=== PATIENT | male | born 1960 | race Hispanic/Latino ===

== ENCOUNTER 2018-04-14 10:33 | Emergency (ER) | payer SELFPAY ==
[2018-04-14] MEDS ORDERED: NA CHLORIDE 0.9% 2,000 ML ONE (11:32)
[2018-04-14 11:39] LABS: Absolute Lymphocytes (CBC) 1.8 K/uL (0.7-4.9); Absolute Monocytes 0.5 K/uL (0.1-1.3); Absolute Neutrophil 3.8 K/uL (1.8-8.0); Basophils % 0.8 % (0-1.3); Hematocrit 44.4 % (39.6-49.0); Lymphocytes % 27.6 % (15.3-44.8); MCH 29.5 pg (27.0-35.0); MCV 87.9 fL (80-100); MPV 8.7 fL (7.6-11.3); RBC Red Blood Cell Count 5.05 M/uL (4.33-5.43)
[2018-04-14 12:00] LABS: Protime INR 0.97
[2018-04-14 12:01] LABS: Albumin 3.7 g/dL (3.4-5.0); Bilirubin Direct 0.1 mg/dL (0-0.2); Bilirubin Total 0.4 mg/dL (0.2-1.0); CKMB Creatine Kinase MB 1.1 ng/mL (0.3-3.6); Magnesium 2.5 mg/dL (1.8-2.4); Potassium 4.1 mmol/L (3.5-5.1); Protein, Total 7.9 g/dL (6.4-8.2)
--- NOTE | 2018-04-14 12:50 | RAD REPORT ---
EXAM DESCRIPTION: Kelly Single View04/14/2018 12:37 pm CLINICAL HISTORY: cough COMPARISON: October 2017 FINDINGS: The lungs appear clear of acute infiltrate. The heart is normal size IMPRESSION: No acute abnormalities displayed
--- NOTE | 2018-04-14 12:58 | RAD REPORT ---
EXAM DESCRIPTION: CT - Head Brain Wo Cont - 04/14/2018 12:51 pm CLINICAL HISTORY: Headache COMPARISON: None. TECHNIQUE: Axial 5 mm thick images of the head were obtained without IV contrast. All CT scans are performed using dose optimization technique as appropriate and may include automated exposure control or mA/KV adjustment according to patient size. FINDINGS: No intracranial hemorrhage, mass, edema or shift of mid-line structures. No acute infarcti on changes seen. No abnormal extra-axial fluid collections. Ventricles are normal. Mastoid air cells are clear. Prominent circumferential mucosal thickening of the right maxillary sinu s with small air-fluid level. Mucosal thickening is much less prominent in the left maxillary sinus. There is a small left air-fluid level. Patchy mucosal thickening in the ethmoid air cells. Sphenoid a nd frontal sinuses are clear. Left deviation of the nasal septum. No acute bony findings. IMPRESSION: No mass, edema or acute intracranial finding. Bilateral maxillary sinusitis worse on the right.
--- NOTE | 2018-04-14 13:16 | RAD REPORT ---
EXAM DESCRIPTION: CT - Chest Abdomen Pelvis W Cont - 04/14/2018 12:54 pm CLINICAL HISTORY: Left-sided chest pain, abdominal pain, weakness, abdominal distention COMPARISON: Portable chest April 14, CT chest May 2016 TECHNIQUE: Following dynamic enhancement using 100 milliliters nonionic IV contrast, axial imaging o f the chest, abdomen and pelvis was performed. Biphasic technique was utilized through the abdomen. Oral contrast was administered. All CT scans are performed using dose optimization technique as appropriate and may include automated exposure control or mA/KV adjustment according to patient size. FINDINGS: Small subpleural calcified granuloma seen posterior right upper lung field stable from 201 6. No mass, infiltrate or other acute pleural or parenchymal process. No pleural effusion, pleural th ickening or pneumothorax. No significant aortic or pulmonary arterial tree finding. Mediastinal and h ilar regions show no mass or abnormal lymphadenopathy. No chest wall mass or axillary lymphadenopathy . No rib fracture or clearly pathologic rib process. In the posterior right ninth rib (image 43/93) t here is subtle lucency that is favored to be a volume averaging affect rather than a true rib lesion. No history to indicate posterior lower right rib symptoms. Thoracic spine degenerative changes are p resent. Liver size is normal. Mild diffuse fatty infiltration pattern is present in the liver with no focal l iver lesion identified. Spleen and pancreas show no acute findings. A 2.1 centimeter gallstone is pre sent in a partially contracted gallbladder. Additional stones could be occult. No acute gallbladder p rocess suspected. Biliary tree within normal limits. Symmetric renal function is seen with no mass or hydronephrosis. No adrenal abnormalities. Contracte d urinary bladder shows no suspicious finding. Prostate gland and seminal vesicles within normal limi ts. No dilated bowel loops or focal bowel wall thickening. Mild sigmoid diverticulosis without diverticul itis. Disc and bony degenerative changes are present along with SI joint degenerative change. No significant vascular findings. IMPRESSION: No suspicious mass, infiltrate or acute CT chest finding identified. Mild sigmoid diverticulosis without diverticulitis. No acute CT abdomen or pelvis finding identifiabl e. Cholelithiasis without evidence for acute gallbladder disease. Fatty infiltration of the liver. Subtle lucent area in the posterior right ninth rib is very likely a summation artifact. True lytic l esion is doubtful. This is apparently asymptomatic region for the patient. There are no additional fi ndings on this examination to indicate additional bone abnormalities or significant soft tissue mass/ lymphadenopathy. If there are patient or physician concerns, bone scan could be performed to evaluate for any activity in the right ninth rib or any other significant bone process.
[2018-04-14] MEDS ORDERED: CEFTRIAXONE/SWI 1gm 1 GM/10 ML SYR ONE (13:48)
[2018-04-14] MEDS ORDERED: KETOROLAC 30 MG/ML INJ ONE (14:09)
[2018-04-14] MEDS ORDERED: ASPIRIN 81 MG CHEWABLE TABLET ONE (14:09)
[2018-04-14] MEDS ORDERED: AMOX TR/K CLAV 400MG CHEW TAB PO ONE (14:35)
[2018-04-14 15:07] LABS: CKMB Creatine Kinase MB 1.1 ng/mL (0.3-3.6)
--- NOTE | 2018-04-14 15:16 | EDPHYS ---
Physician Documentation [facility] Name: Azam Eastman Age: 57 yrs Sex: Male : 1960 Arrival Date: 04/14/2018 Time: 10:35 Bed 14 Private MD: ED Physician Ed Trent HPI: 04/14 11:14 This 57 yrs old Male presents to ER via Wheelchair with complaints of valentine Weakness, Headache. 11:14 The patient presents to the emergency department with weakness of the. Onset: The valentine symptoms/episode began/occurred 4 day(s) ago. Severity of symptoms: At their worst the symptoms were mild moderate in the emergency department the symptoms are unchanged. Historical: - Allergies: 10:46 No Known Allergies; aa5 - PMHx: 10:46 Cholelithiasis; aa5 11:03 Arthritis; ae1 - PSHx: 10:47 L knee; aa5 - Immunization history:: Adult Immunizations up to date. - Social history:: Smoking status: Patient/guardian denies using tobacco. - Ebola Screening: : No symptoms or risks identified at this time. - Family history:: not pertinent. ROS: 11:15 Eyes: Negative for injury, pain, redness, and discharge, ENT: Negative for injury, valentine pain, and discharge, Neck: Negative for injury, pain, and swelling, Cardiovascular: Negative for chest pain, palpitations, and edema, Respiratory: Negative for shortness of breath, cough, wheezing, and pleuritic chest pain, Back: Negative for injury and pain, : Negative for injury, bleeding, discharge, and swelling, Skin: Negative for injury, rash, and discoloration, Neuro: Negative for headache, weakness, numbness, tingling, and seizure, Psych: Negative for depression, anxiety, suicide ideation, homicidal ideation, and hallucinations, Allergy/Immunology: Negative for hives, rash, and allergies, Endocrine: Negative for neck swelling, polydipsia, polyuria, polyphagia, and marked weight changes, Hematologic/Lymphatic: Negative for swollen nodes, abnormal bleeding, and unusual bruising. 11:15 Constitutional: Positive for body aches, fatigue, malaise. 11:15 Abdomen/GI: Positive for abdominal pain, of the anterior aspect of left lateral abdomen and posterior aspect of left lateral abdomen. 11:15 MS/extremity: Positive for pain, tenderness, of the left arm. Exam: 11:15 Constitutional: This is a well developed, well nourished patient who is awake, alert, valentine and in no acute distress. Head/Face: Normocephalic, atraumatic. Eyes: Pupils equal round and reactive to light, extra-ocular motions intact. Lids and lashes normal. Conjunctiva and sclera are non-icteric and not injected. Cornea within normal limits. Periorbital areas with no swelling, redness, or edema. ENT: Nares patent. No nasal discharge, no septal abnormalities noted. Tympanic membranes are normal and external auditory canals are clear. Oropharynx with no redness, swelling, or masses, exudates, or evidence of obstruction, uvula midline. Mucous membranes moist. Neck: Trachea midline, no thyromegaly or masses palpated, and no cervical lymphadenopathy. Supple, full range of motion without nuchal rigidity, or vertebral point tenderness. No Meningismus. Chest/axilla: Normal chest wall appearance and motion. Nontender with no deformity. No lesions are appreciated. Cardiovascular: Regular rate and rhythm with a normal S1 and S2. No gallops, murmurs, or rubs. Normal PMI, no JVD. No pulse deficits. Respiratory: Lungs have equal breath sounds bilaterally, clear to auscultation and percussion. No rales, rhonchi or wheezes noted. No increased work of breathing, no retractions or nasal flaring. Back: No spinal tenderness. No costovertebral tenderness. Full range of motion. Male : Normal genitalia with no discharge or lesions. Skin: Warm, dry with normal turgor. Normal color with no rashes, no lesions, and no evidence of cellulitis. MS/ Extremity: Pulses equal, no cyanosis. Neurovascular intact. Full, normal range of motion. Neuro: Awake and alert, GCS 15, oriented to person, place, time, and situation. Cranial nerves II-XII grossly intact. Motor strength 5/5 in all extremities. Sensory grossly intact. Cerebellar exam normal. Normal gait. Psych: Awake, alert, with orientation to person, place and time. Behavior, mood, and affect are within normal limits. 11:15 Abdomen/GI: Inspection: abdomen appears normal, Bowel sounds: normal, Palpation: mild abdominal tenderness, moderate abdominal tenderness, in the anterior aspect of left lateral abdomen and posterior aspect of left lateral abdomen, Liver: no appreciated palpable abnormalities, Hernia: not appreciated. 11:58 Neck: ROM/movement: is normal, no acute changes, Meningeal signs: are not present, valentine Kernig's sign is negative, Brudzinski's sign is negative. Vital Signs: 10:40 Weight 156.49 kg (R); Height 5 ft. 11 in. (180.34 cm) (R); Pain 10/10; aa5 10:54 BP 139 / 93; Pulse 67; Resp 22; Temp 98.3(O); Pulse Ox 97% ; mh5 11:58 BP 140 / 90; Pulse 58; Resp 19; Pulse Ox 98% on R/A; ae1 13:46 BP 143 / 89; Pulse 59; Resp 18; Pulse Ox 100% on R/A; mh5 13:50 BP 136 / 80; Pulse 55; Resp 19; Pulse Ox 99% on R/A; ae1 16:01 BP 134 / 82; Pulse 62; Resp 17; Pulse Ox 98% on R/A; ae1 10:40 Body Mass Index 48.12 (156.49 kg, 180.34 cm) aa5 MDM: 10:42 Patient medically screened. [facility] 11:17 Data reviewed: vital signs, nurses notes, lab test result(s), EKG, radiologic studies, [facility] CT scan, plain films. 04/14 11:13 Order name: Basic Metabolic Panel; Complete Time: 13:15 [facility] 04/14 11:13 Order name: CBC with Diff; Complete Time: 11:58 [facility] 04/14 11:13 Order name: Ckmb; Complete Time: 13:15 [facility] 04/14 11:13 Order name: CPK; Complete Time: 13:15 [facility] 04/14 11:13 Order name: LFT's; Complete Time: 13:15 [facility] 04/14 11:13 Order name: Magnesium; Complete Time: 13:15 [facility] 04/14 11:13 Order name: NT PRO-BNP; Complete Time: 13:15 [facility] 04/14 11:13 Order name: PT-INR; Complete Time: 13:15 [facility] 04/14 11:13 Order name: Ptt, Activated; Complete Time: 13:15 [facility] 04/14 11:13 Order name: Troponin (emerg Dept Use Only); Complete Time: 13:15 [facility] 04/14 11:13 Order name: Blood Culture Adult (2) [facility] 04/14 11:13 Order name: Lipase; Complete Time: 13:15 [facility] 04/14 11:13 Order name: Urine Culture [facility] 04/14 13:00 Order name: Urine Dipstick--Ancillary (enter results) 04/14 11:13 Order name: XRAY Chest (1 view); Complete Time: 13:15 [facility] 04/14 11:13 Order name: EKG; Complete Time: 11:14 [facility] 04/14 11:13 Order name: Cardiac monitoring; Complete Time: 11:24 [facility] 04/14 11:13 Order name: EKG - Nurse/Tech; Complete Time: 11:24 [facility] 04/14 11:13 Order name: CT Head Brain wo Cont; Complete Time: 13:15 [facility] 04/14 11:13 Order name: CT Chest, Abdomen, Pelvis - W/Contrast; Complete Time: 13:41 [facility] 04/14 13:48 Order name: Ckmb; Complete Time: 15:14 [facility] 04/14 13:48 Order name: Creatine Phosphokinase; Complete Time: 15:14 [facility] 04/14 13:48 Order name: Troponin (emerg Dept Use Only); Complete Time: 15:14 [facility] 04/14 14:22 Order name: US Carotid Artery Bilateral [facility] 04/14 11:13 Order name: IV Saline Lock; Complete Time: 11:24 [facility] 04/14 11:13 Order name: Labs collected and sent; Complete Time: 11:25 [facility] 04/14 11:13 Order name: O2 Per Protocol; Complete Time: 11:24 [facility] 04/14 11:13 Order name: O2 Sat Monitoring; Complete Time: 11:24 [facility] 04/14 11:13 Order name: Urine Dipstick-Ancillary (obtain specimen); Complete Time: 12:49 [facility] 04/14 13:48 Order name: Repeat Cardiac Enzymes at: 200pm; Complete Time: 14:18 [facility] Administered Medications: 11:30 Drug: NS 0.9% 1000 ml Route: IV; Rate: 1 bolus; Site: right antecubital; ae1 16:00 Follow up: IV Status: Completed infusion ae1 11:30 Drug: NS 0.9% 1000 ml Route: IV; Rate: 1 bolus; Site: right antecubital; ae1 16:00 Follow up: IV Status: Completed infusion ae1 13:32 Drug: Rocephin - (cefTRIAXone) 1 grams Route: IVPB; Infused Over: 30 mins; Site: right ae1 antecubital; 15:59 Follow up: IV Status: Completed infusion ae1 14:08 Drug: Aspirin 81 mg Route: PO; ae1 14:33 Follow up: Response: No adverse reaction ae1 14:09 Drug: TORadol 30 mg Route: IVP; Site: right antecubital; ae1 15:59 Follow up: Response: Pain is decreased ae1 14:40 Drug: Augmentin 875 mg Route: PO; ae1 15:59 Follow up: Response: No adverse reaction ae1 Disposition: 04/14/18 15:15 Discharged to Home. Impression: Weakness, Headache, Other chest pain - musculoskelatal, Obesity, unspecified, Acute sinusitis. - Condition is Stable. - Discharge Instructions: Nonspecific Chest Pain, General Headache Without Cause, Sinusitis, Adult, Weakness, Fatigue, Sinusitis, Uijf-fd-Jnwv, Nonspecific Chest Pain, Cghp-pf-Ebeq, Weakness, Ccgp-gb-Ruse, Aspirin and Your Heart, General Headache Without Cause, Ywgm-nu-Egkz, Obesity, Nfkv-sy-Ognr. - Prescriptions for Fioricet with Codeine 50- 325-40-30 mg Oral capsule - take 1 capsule by ORAL route every 4 hours as needed not to exceed 6 capsules per 24hrs; 26 capsule. Augmentin 875- 125 mg Oral Tablet - take 1 tablet by ORAL route every 12 hours for 10 days; 20 tablet. Zofran 4 mg Oral Tablet - take 1 tablet by ORAL route every 12 hours As needed; 20 tablet. - Medication Reconciliation Form, Thank You Letter, Antibiotic Education, Prescription Opioid Use form. - Follow up: Private Physician; When: 2 - 3 days; Reason: Recheck today's complaints, Continuance of care, Re-evaluation by your physician. Follow up: Danyel Giang; When: 2 - 3 days; Reason: Recheck today's complaints, Continuance of care, Re-evaluation by your physician. - Problem is new. - Symptoms have improved. Signatures: Dispatcher [employer] Ed George MD MD cha Calderon, Audri RN RN aa5 Praful Mcgee RN RN ae1 Corrections: (The following items were deleted from the chart) 10:47 10:46 PSHx: None; aa5 aa5 16:01 15:15 04/14/2018 15:15 Discharged to Home. Impression: Weakness; Headache; Other chest ae1 pain - musculoskelatal; Obesity, unspecified; Acute sinusitis. Condition is Stable. Discharge Instructions: Nonspecific Chest Pain, General Headache Without Cause, Weakness, Fatigue, Nonspecific Chest Pain, Mhya-ui-Emvv, Weakness, Uwjv-rq-Buyl, Aspirin and Your Heart, General Headache Without Cause, Nxkk-zw-Ikjk, Obesity, Wkvf-eb-Kbxy, Sinusitis, Adult, Sinusitis, Iryk-xb-Osgo. Prescriptions for Fioricet with Codeine 50-189-98-30 mg Oral capsule - take 1 capsule by ORAL route every 4 hours as needed not to exceed 6 capsules per 24hrs; 26 capsule, Augmentin 875-125 mg Oral Tablet - take 1 tablet by ORAL route every 12 hours for 10 days; 20 tablet, Zofran 4 mg Oral Tablet - take 1 tablet by ORAL route every 12 hours As needed; 20 tablet. and Forms are Medication Reconciliation Form, Thank You Letter, Antibiotic Education, Prescription Opioid Use. Follow up: Private Physician; When: 2 - 3 days; Reason: Recheck today's complaints, Continuance of care, Re-evaluation by your physician. Follow up: Danyel Giang; When: 2 - 3 days; Reason: Recheck today's complaints, Continuance of care, Re-evaluation by your physician. Problem is new. Symptoms have improved. valentine
--- NOTE | 2018-04-14 15:16 | ER ---
Nurse's Notes [facility] Name: Azam Eastman Age: 57 yrs Sex: Male : 1960 Arrival Date: 04/14/2018 Time: 10:35 Bed 14 Private MD: Diagnosis: Weakness;Headache;Other chest pain-musculoskelatal;Obesity, unspecified;Acute sinusitis Presentation: 04/14 10:37 Presenting complaint: Patient states: generalized weakness x 2 days, headache to back aa5 of head x 4 days. Pt also reports left-sided chest pain and left arm pain x 2 days. Pt denies N/V/D. 10:37 Transition of care: patient was not received from another setting of care. Onset of aa5 symptoms was March 2018. Risk Assessment: Do you want to hurt yourself or someone else? Patient reports no desire to harm self or others. Initial Sepsis Screen: Does the patient meet any 2 criteria? No. Patient's initial sepsis screen is negative. Does the patient have a suspected source of infection? No. Patient's initial sepsis screen is negative. Care prior to arrival: None. 10:37 Method Of Arrival: Wheelchair aa5 10:37 Acuity: YOLIS 3 aa5 11:01 No acute neurological deficit is noted. ae1 Historical: - Allergies: 10:46 No Known Allergies; aa5 - PMHx: 10:46 Cholelithiasis; aa5 11:03 Arthritis; ae1 - PSHx: 10:47 L knee; aa5 - Immunization history:: Adult Immunizations up to date. - Social history:: Smoking status: Patient/guardian denies using tobacco. - Ebola Screening: : No symptoms or risks identified at this time. - Family history:: not pertinent. Screenin:00 Abuse screen: Denies threats or abuse. Nutritional screening: No deficits noted. ae1 Tuberculosis screening: No symptoms or risk factors identified. Fall Risk None identified. Assessment: 10:58 General: Appears in no apparent distress. uncomfortable, obese, Behavior is ae1 cooperative, anxious. Pain: Complains of pain in anterior aspect of left upper chest and left breast Pain radiates to left arm Pain currently is 10 out of 10 on a pain scale. Pain: Complains of pain in head and back of head. Neuro: Level of Consciousness is awake, alert, obeys commands, Oriented to person, place, time, situation. Cardiovascular: skin is warm and mildly diaphoretic. . Respiratory: Airway is patent Respiratory effort is even, unlabored, Respiratory pattern is regular, symmetrical, Breath sounds are clear bilaterally. in right upper lobe, left upper lobe, right middle lobe, left lower lobe and right lower lobe. GI: Abdomen is round obese, Bowel sounds present X 4 quads. Abd is soft and non tender. GI: Reports nausea. : No signs and/or symptoms were reported regarding the genitourinary system. EENT: No signs and/or symptoms were reported regarding the EENT system. Derm: Skin is intact, Skin is diaphoretic, Skin is normal, Skin temperature is warm. Musculoskeletal: Reports Generalized weakness. 11:41 Reassessment: Notified CT, via telephone that patient completed PO contrast at 11:20. ae1 12:06 Reassessment: Patient encouraged to urinate to provide urine sample, patient states he ae1 is unable to at this time. 13:51 Reassessment: Provider at bedside discussing plan of care. ae1 14:34 Reassessment: Ultrasound at bedside. ae1 Vital Signs: 10:40 Weight 156.49 kg (R); Height 5 ft. 11 in. (180.34 cm) (R); Pain 10/10; aa5 10:54 BP 139 / 93; Pulse 67; Resp 22; Temp 98.3(O); Pulse Ox 97% ; mh5 11:58 BP 140 / 90; Pulse 58; Resp 19; Pulse Ox 98% on R/A; ae1 13:46 BP 143 / 89; Pulse 59; Resp 18; Pulse Ox 100% on R/A; mh5 13:50 BP 136 / 80; Pulse 55; Resp 19; Pulse Ox 99% on R/A; ae1 16:01 BP 134 / 82; Pulse 62; Resp 17; Pulse Ox 98% on R/A; ae1 10:40 Body Mass Index 48.12 (156.49 kg, 180.34 cm) aa5 ED Course: 10:35 Patient arrived in ED. rg4 10:37 Arm band placed on Patient placed in an exam room, on a stretcher. aa5 10:39 Praful Mcgee RN is Primary Nurse. ae1 10:42 Ed Trent MD is Attending Physician. valentine 10:46 Triage completed. aa5 10:53 Patient has correct armband on for positive identification. Placed in gown. Bed in low mh5 position. Call light in reach. Side rails up X 1. Warm blanket given. night monitor on. Pulse ox on. NIBP on. 11:01 Inserted saline lock: 20 gauge in right antecubital area, using aseptic technique. ae1 Blood collected. 11:15 EKG done, by cartography technician. reviewed by Ed Trent MD. at1 11:45 First set of blood cultures drawn by me, Second set of blood cultures drawn by me. mh5 12:36 XRAY Chest (1 view) In Process Unspecified. EDMS 12:51 CT Head Brain wo Cont In Process Unspecified. EDMS 12:54 CT Chest, Abdomen, Pelvis - W/Contrast In Process Unspecified. EDMS 12:59 Urine collected: clean catch specimen, clear. mh5 12:59 Urine Culture Sent. mh5 13:00 Blood Culture Adult (2) Sent. mh5 13:04 CT completed. Patient tolerated procedure well. Patient moved back from CT. vr 14:31 Ckmb Sent. mh5 14:31 Creatine Phosphokinase Sent. mh5 14:31 Troponin (emerg Dept Use Only) Sent. mh5 14:32 Repeat lab(s) drawn. by me, sent to lab. mh5 14:52 US Carotid Artery Bilateral In Process Unspecified. EDMS 14:53 Ultrasound completed. Other: at bedside. aa4 15:15 Danyel Giang MD is Referral Physician. valentine 15:58 No provider procedures requiring assistance completed. IV discontinued, intact, ae1 bleeding controlled, No redness/swelling at site. Pressure dressing applied. Administered Medications: 11:30 Drug: NS 0.9% 1000 ml Route: IV; Rate: 1 bolus; Site: right antecubital; ae1 16:00 Follow up: IV Status: Completed infusion ae1 11:30 Drug: NS 0.9% 1000 ml Route: IV; Rate: 1 bolus; Site: right antecubital; ae1 16:00 Follow up: IV Status: Completed infusion ae1 13:32 Drug: Rocephin - (cefTRIAXone) 1 grams Route: IVPB; Infused Over: 30 mins; Site: right ae1 antecubital; 15:59 Follow up: IV Status: Completed infusion ae1 14:08 Drug: Aspirin 81 mg Route: PO; ae1 14:33 Follow up: Response: No adverse reaction ae1 14:09 Drug: TORadol 30 mg Route: IVP; Site: right antecubital; ae1 15:59 Follow up: Response: Pain is decreased ae1 14:40 Drug: Augmentin 875 mg Route: PO; ae1 15:59 Follow up: Response: No adverse reaction ae1 Outcome: 15:15 Discharge ordered by MD. grijalva 15:58 Discharged to home ambulatory, with assistant production editor ae1 15:58 Condition: stable 15:58 Discharge instructions given to patient, assistant production editor, Instructed on discharge instructions, follow up and referral plans. medication usage, Demonstrated understanding of instructions, Prescriptions given X 3. 16:01 Patient left the ED. ae1 Signatures: Dispatcher [employer] EDEd Szymanski MD MD cha Frazier, Amanda aa4 Shara Carrasco RN RN aa5 Dayanna Stevenson Amanda, food preservation scientist EKG Tat1 Praful Mcgee RN RN ae1 Jaylene Montejo 4 Charlotte Tian [facility] Corrections: (The following items were deleted from the chart) 10:47 10:46 PSHx: None; aa5 aa5
[2018-04-14 15:29] LABS: Urine Blood NEGATIVE (NEG); Urine Glucose NEGATIVE (NEG); Urine Protein TRACE (NEG); Urine Specific Gravity 1.025 (1.005-1.030)
--- NOTE | 2018-04-14 16:18 | EKG ---
Test Date: 2018-04-14 Test Time: 10:52:00 Metallurgist Helper: TONY MEASUREMENT RESULTS: Intervals: Rate: 70 MN: 150 QRSD: 90 QT: 394 QTc: 425 [place]: P: 15 MN: 150 QRS: 60 T: 67 INTERPRETIVE STATEMENTS: Normal sinus rhythm Normal ECG Compared to ECG 06/17/2016 19:59:52 No significant changes Electronically Signed On 04-14-18 16:18:03 CDT by Jasvir Chapa
--- NOTE | 2018-04-14 17:43 | RAD REPORT ---
EXAM DESCRIPTION: LINDA Ross CP - 04/14/2018 3:02 pm CLINICAL HISTORY: Dizziness, weakness, headache COMPARISON: None. TECHNIQUE: Real-time sonographic evaluation of both carotid systems was performed. Doppler interroga tion was performed with waveform tracing bilaterally. FINDINGS: Normal high resistance waveforms are noted in both external carotid arteries. The common c arotid arteries and internal carotid arteries show normal low resistance waveforms. Calcified and noncalcified plaquing changes are present in each carotid bulb, more so on the right. O n visual inspection the atherosclerotic changes do not cause significant luminal narrowing. Peak syst olic and end diastolic velocity values and the ICA/CCA ratios are in the non-hemodynamically signific ant range. Right common carotid artery peak systolic velocity was 63 cm/second with the left common c arotid 93 cm/second. Right ICA velocity values ranged from 47-67 cm/second. Left ICA velocity values range from 60-79 cm/second. ICA/CCA ratios are 1.1 on the right and 0.9 on the left. Antegrade flow seen in both vertebral arteries. Velocity values and ratios were recorded and are retained in the patient's imaging records. IMPRESSION: Bilateral carotid bulb calcified and noncalcified plaquing changes. No evidence of a hemodynamically significant stenosis.
== END 2018-04-14 16:01 | disposition home or self-care (01) ==
LOC: ER 10:33
DX: R51 Headache (principal); R07.89 Other chest pain; J01.90 Acute sinusitis, unspecified; E66.9 Obesity, unspecified
CPT/HCPCS: 36415; 70450; 71045; 71260; 74177; 80048; 80076; 81003; 82550; 82553; 83690; 83735; 83880; 84484; 85025; 85610; 85730; 87040; 87086; 87088; 87205; 93005; 93880; 96361; 96365; 96366; 96375; 99285; J0696; J7030; Q9967

== ENCOUNTER 2018-11-18 16:46 | Emergency (ER) | payer SELFPAY ==
[2018-11-18] MEDS ORDERED: KETOROLAC 30 MG/ML INJ ONE (18:03)
[2018-11-18 18:26] LABS: Absolute Lymphocytes (CBC) 1.8 K/uL (0.7-4.9); Absolute Monocytes 0.6 K/uL (0.1-1.3); Absolute Neutrophil 2.6 K/uL (1.8-8.0); Basophils % 0.7 % (0-1.3); Hematocrit 46.6 % (39.6-49.0); Lymphocytes % 32.5 % (15.3-44.8); MPV 8.6 fL (7.6-11.3); Monocytes % 10.2 % (3.3-12.3); RBC Red Blood Cell Count 5.21 M/uL (4.33-5.43)
--- NOTE | 2018-11-18 18:26 | RAD REPORT ---
EXAM DESCRIPTION: CT - Stone Protocol - 11/18/2018 6:00 pm CLINICAL HISTORY: Abdominal pain. Left flank pain COMPARISON: March 2018 TECHNIQUE: Computed axial tomography of the abdomen pelvis was obtained without oral or IV contrast. Lack of IV and oral contrast limits evaluation of solid organs, bowel, and vessels. Coronal reformat hyacinth images were obtained and reviewed. All CT scans are performed using dose optimization technique as appropriate and may include automated exposure control or mA/KV adjustment according to patient size. FINDINGS: A renal calculus is not seen. An ureteral calculus is not noted. A bladder calculus is not present. The liver, spleen, pancreas and adrenals appear grossly normal There is no evidence of diverticulitis. The appendix appears normal Gallstone without gallbladder wall thickening IMPRESSION: Negative for a genitourinary calculus Cholelithiasis without cholecystitis
[2018-11-18 18:43] LABS: Potassium 4.1 mmol/L (3.5-5.1)
[2018-11-18 18:45] LABS: Urine Bacteria NONE SEEN /HPF (NONE SEEN)
[2018-11-18 18:46] LABS: Urine Blood NEGATIVE (NEG); Urine Glucose NEGATIVE (NEG); Urine Protein NEGATIVE (NEG); Urine Specific Gravity 1.025 (1.005-1.030); Urine pH 6.5 (5.0-7.0)
[2018-11-18 18:46] LABS: Urine Culture Reflex Order NOT NEEDED
--- NOTE | 2018-11-18 19:23 | ER ---
Nurse's Notes [facility] Name: Azam Eastman Age: 58 yrs Sex: Male : 1960 Arrival Date: 11/18/2018 Time: 16:49 Bed 15 Private MD: Diagnosis: Sciatica, left side Presentation: 11/18 17:12 Presenting complaint: Left flank pain 10/10 and dizziness x 2 days. Denies hb injury/urinary s/s. Transition of care: patient was not received from another setting of care. Onset of symptoms was November 17, 2018. Risk Assessment: Do you want to hurt yourself or someone else? Patient reports no desire to harm self or others. Care prior to arrival: None. 17:12 Method Of Arrival: Ambulatory hb 17:12 Acuity: YOLIS 3 hb 17:15 Initial Sepsis Screen: Does the patient meet any 2 criteria? No. Patient's initial rb1 sepsis screen is negative. Does the patient have a suspected source of infection? No. Patient's initial sepsis screen is negative. Historical: - Allergies: 17:13 No Known Allergies; hb - Home Meds: 17:15 None [Active]; rb1 - PMHx: 17:13 Arthritis; Cholelithiasis; hb 17:15 kidney infection; Kidney stones; rb1 - PSHx: 17:13 L knee; hb - Immunization history:: Adult Immunizations up to date. - Social history:: Smoking status: Patient/guardian denies using tobacco. - Ebola Screening: : No symptoms or risks identified at this time. Screenin:15 Abuse screen: Denies threats or abuse. Nutritional screening: No deficits noted. rb1 Tuberculosis screening: No symptoms or risk factors identified. Fall Risk None identified. Assessment: 17:15 General: Appears uncomfortable, obese, Behavior is calm, cooperative. Pain: Complains rb1 of pain in left flank Pain radiates to left low back Pain currently is 10 out of 10 on a pain scale. Pain began Saturday. Neuro: Level of Consciousness is awake, alert, obeys commands, Oriented to person, place, time, situation. Cardiovascular: Capillary refill < 3 seconds is brisk in bilateral fingers. Respiratory: Airway is patent Respiratory effort is even, unlabored, Respiratory pattern is regular, symmetrical. GI: No signs and/or symptoms were reported involving the gastrointestinal system. : No signs and/or symptoms were reported regarding the genitourinary system. Derm: Skin is dry, Skin is normal, Skin temperature is warm. Musculoskeletal: Range of motion: intact in all extremities. 18:15 Reassessment: Patient appears in no apparent distress at this time. No changes from rb1 previously documented assessment. 18:45 Reassessment: Patient appears in no apparent distress at this time. Patient and/or rb1 family updated on plan of care and expected duration. Pain level reassessed. Patient is alert, oriented x 3, equal unlabored respirations, skin warm/dry/pink. Vital Signs: 17:13 BP 163 / 100; Pulse 65; Resp 18; Temp 98.8; Pulse Ox 97% ; Pain 10/10; hb 18:44 BP 146 / 84; Pulse 67; Resp 20; Pulse Ox 100% on R/A; Pain 9/10; rb1 20:13 BP 138 / 95; Pulse 62; Resp 18; Pulse Ox 98% on R/A; Pain 4/10; ao ED Course: 16:49 Patient arrived in ED. rg4 17:13 Triage completed. hb 17:13 Arm band placed on. EKG completed in triage. Results shown to MD. EKG completed in hb triage. Results shown to MD. 17:15 Patient has correct armband on for positive identification. Bed in low position. Call rb1 light in reach. Side rails up X 1. Pulse ox on. NIBP on. 17:24 Junior Barba MD is Attending Physician. gs 17:39 Zulma Johnson RN is Primary Nurse. rb1 17:[address] nj 18:01 CT Stone Protocol In Process Unspecified. EDMS 18:10 Inserted saline lock: 22 gauge in right antecubital area, using aseptic technique. rb1 Blood collected. 18:28 Urine Microscopic Only Sent. rb1 19:00 Report given to BULMARO Cabrera. rb1 20:13 No provider procedures requiring assistance completed. IV discontinued, intact, ao bleeding controlled, No redness/swelling at site. Pressure dressing applied. Administered Medications: 18:15 Drug: TORadol 30 mg Route: IVP; Site: right antecubital; rb1 18:45 Follow up: Response: No adverse reaction; Pain is unchanged, physician notified rb1 Outcome: 19:23 Discharge ordered by . gs 20:13 Discharged to home ambulatory. ao 20:13 Condition: stable 20:13 Discharge instructions given to patient, Instructed on discharge instructions, follow up and referral plans. the need for admit, Demonstrated understanding of instructions, follow-up care, medications, Prescriptions given X 2. 20:14 Patient left the ED. ao Signatures: Dispatcher [employer] EDMS Zulma Johnson RN RN rb1 Rick Melendez RN RN ao Baxter, Heather, RN RN hb Garcia, Rubi 4 Finn Inman Gregory, MD MD
--- NOTE | 2018-11-18 19:23 | EDPHYS ---
Physician Documentation [facility] Name: Azam Eastman Age: 58 yrs Sex: Male : 1960 Arrival Date: 11/18/2018 Time: 16:49 Bed 15 Private MD: ED Physician Junior Barba HPI: 11/18 19:12 This 58 yrs old Male presents to ER via Ambulatory with complaints of Low Back gs Pain. 19:13 The patient presents with pain that is acute. The symptoms are located in the low back. gs The pain radiates to the left quadriceps. Onset: The symptoms/episode began/occurred 3 day(s) ago, and became persistent. Modifying factors: The patient symptoms are alleviated by nothing, the patient symptoms are aggravated by any movement, bending. Associated signs and symptoms: Pertinent negatives: hematuria, incontinence, numbness, tingling, urinary retention, weakness. Severity of symptoms: At their worst the symptoms were moderate, in the emergency department the symptoms are unchanged. The patient has experienced similar episodes in the past, a few times. Historical: - Allergies: 17:13 No Known Allergies; hb - Home Meds: 17:15 None [Active]; rb1 - PMHx: 17:13 Arthritis; Cholelithiasis; hb 17:15 kidney infection; Kidney stones; rb1 - PSHx: 17:13 L knee; hb - Immunization history:: Adult Immunizations up to date. - Social history:: Smoking status: Patient/guardian denies using tobacco. - Ebola Screening: : No symptoms or risks identified at this time. ROS: 19:21 All other systems are negative. gs Exam: 19:21 Head/Face: Normocephalic, atraumatic. Eyes: Pupils equal round and reactive to light, gs extra-ocular motions intact. Lids and lashes normal. Conjunctiva and sclera are non-icteric and not injected. Cornea within normal limits. Periorbital areas with no swelling, redness, or edema. ENT: Nares patent. No nasal discharge, no septal abnormalities noted. Tympanic membranes are normal and external auditory canals are clear. Oropharynx with no redness, swelling, or masses, exudates, or evidence of obstruction, uvula midline. Mucous membranes moist. Neck: Trachea midline, no thyromegaly or masses palpated, and no cervical lymphadenopathy. Supple, full range of motion without nuchal rigidity, or vertebral point tenderness. No Meningismus. Chest/axilla: Normal chest wall appearance and motion. Nontender with no deformity. No lesions are appreciated. Cardiovascular: Regular rate and rhythm with a normal S1 and S2. No gallops, murmurs, or rubs. Normal PMI, no JVD. No pulse deficits. Respiratory: Lungs have equal breath sounds bilaterally, clear to auscultation and percussion. No rales, rhonchi or wheezes noted. No increased work of breathing, no retractions or nasal flaring. Abdomen/GI: Soft, non-tender, with normal bowel sounds. No distension or tympany. No guarding or rebound. No evidence of tenderness throughout. Skin: Warm, dry with normal turgor. Normal color with no rashes, no lesions, and no evidence of cellulitis. MS/ Extremity: Pulses equal, no cyanosis. Neurovascular intact. Full, normal range of motion. Neuro: Awake and alert, GCS 15, oriented to person, place, time, and situation. Cranial nerves II-XII grossly intact. Motor strength 5/5 in all extremities. Sensory grossly intact. Cerebellar exam normal. Normal gait. 19:21 Constitutional: The patient appears alert, awake. 19:21 Back: pain, that is mild, of the lumbar area. Vital Signs: 17:13 BP 163 / 100; Pulse 65; Resp 18; Temp 98.8; Pulse Ox 97% ; Pain 10/10; hb 18:44 BP 146 / 84; Pulse 67; Resp 20; Pulse Ox 100% on R/A; Pain 9/10; rb1 20:13 BP 138 / 95; Pulse 62; Resp 18; Pulse Ox 98% on R/A; Pain 4/10; ao MDM: 17:42 Patient medically screened. 19:21 Differential diagnosis: arthritis, strain, UTI, stone,aaa. Data reviewed: vital signs, nurses notes. Response to treatment: the patient's symptoms have markedly improved after treatment, and as a result, I will discharge patient. 11/18 17:42 Order name: CBC with Diff; Complete Time: 19:01 11/18 17:42 Order name: Basic Metabolic Panel; Complete Time: 19: 11/18 17:42 Order name: Urine Microscopic Only; Complete Time: : 11/18 17:42 Order name: CT Stone Protocol; Complete Time: 19:01 gs 11/18 18:06 Order name: Urine Dipstick--Ancillary (enter results); Complete Time: 19: 11/18 17:42 Order name: Urine Dipstick-Ancillary (obtain specimen); Complete Time: 18:28 Administered Medications: 18:15 Drug: TORadol 30 mg Route: IVP; Site: right antecubital; rb1 18:45 Follow up: Response: No adverse reaction; Pain is unchanged, physician notified rb1 Disposition: 11/18/18 19:23 Discharged to Home. Impression: Sciatica, left side. - Condition is Stable. - Discharge Instructions: Sciatica, Back Exercises, [id number]. - Prescriptions for Prednisone 20 mg Oral Tablet - take 1 tablet by ORAL route once daily for 5 days; 5 tablet. Tylenol- Codeine #4 300-60 mg Oral Tablet - take 1 tablet by ORAL route every 6 hours As needed; 12 tablet. - Work release form, Medication Reconciliation Form, Thank You Letter, Antibiotic Education, Prescription Opioid Use form. - Follow up: Private Physician; When: 2 - 3 days; Reason: Re-evaluation by your physician. - Problem is an acute exacerbation. - Symptoms have improved. Signatures: Dispatcher [employer] EDMS Zulma Johnson RN RN [facility] Rick Melendez RN RN ao Baxter, Heather, RN RN hb Starr, Gregory, MD MD Corrections: (The following items were deleted from the chart) 20:14 19:23 11/18/2018 19:23 Discharged to Home. Impression: Sciatica, left side. Condition ao is Stable. Forms are Medication Reconciliation Form, Thank You Letter, Antibiotic Education, Prescription Opioid Use. Follow up: Private Physician; When: 2 - 3 days; Reason: Re-evaluation by your physician. Problem is an acute exacerbation. Symptoms have improved.
== END 2018-11-18 20:14 | disposition home or self-care (01) ==
LOC: ER 16:46
DX: M54.32 Sciatica, left side (principal); M54.5 Low back pain; K80.20 Calculus of gallbladder without cholecystitis without obstruction
CPT/HCPCS: 36415; 74176; 76377; 80048; 81003; 81015; 85025; 96374; 99284

== ENCOUNTER 2018-12-03 11:42 | Emergency (ER) | payer SELFPAY ==
[2018-12-03] MEDS ORDERED: MORPHINE 4 MG/ML SYR ONE (13:43)
[2018-12-03] MEDS ORDERED: ONDANSETRON 4 MG/2 ML VIAL ONE (13:43)
[2018-12-03] MEDS ORDERED: NA CHLORIDE 0.9% 1,000 ML ONE (13:43)
[2018-12-03 13:45] LABS: Urine Blood NEGATIVE (NEG); Urine Glucose NEGATIVE (NEG); Urine Protein NEGATIVE (NEG)
[2018-12-03 13:56] LABS: Absolute Lymphocytes (CBC) 1.7 K/uL (0.7-4.9); Absolute Monocytes 0.5 K/uL (0.1-1.3); Absolute Neutrophil 3.3 K/uL (1.8-8.0); Basophils % 0.7 % (0-1.3); Eosinophils % 4.8 % (0-4.4); Hematocrit 43.7 % (39.6-49.0); Lymphocytes % 28.9 % (15.3-44.8); MPV 8.7 fL (7.6-11.3); Monocytes % 8.7 % (3.3-12.3); RBC Red Blood Cell Count 4.82 M/uL (4.33-5.43)
[2018-12-03 13:57] LABS: Albumin 3.8 g/dL (3.4-5.0); Bilirubin Direct 0.1 mg/dL (0-0.2); Bilirubin Total 0.5 mg/dL (0.2-1.0); Protein, Total 7.7 g/dL (6.4-8.2)
--- NOTE | 2018-12-03 14:46 | RAD REPORT ---
EXAM DESCRIPTION: CTAbdomen Pelvis W Contrast - 12/03/2018 2:38 pm CLINICAL HISTORY: Abdominal pain. FLANK PAIN COMPARISON: Abdomen Pelvis W Contrast dated 05/28/2016 TECHNIQUE: Biphasic CT imaging of the abdomen and pelvis was performed with 100 ml non-ionic IV cont rast. All CT scans are performed using dose optimization technique as appropriate and may include automated exposure control or mA/KV adjustment according to patient size. FINDINGS: The lung bases are clear.Cholelithiasis. The liver, spleen, pancreas, adrenal glands and kidneys are within normal limits. No bowel obstruction, free air, free fluid or abscess. Sigmoid diverticulosis coli is present without diverticulitis. The appendix is normal. No evidence of significant lymphadenopathy. Moderate lumbar degenerative changes are present. IMPRESSION: No acute intra-abdominal or pelvic finding. Cholelithiasis.
[2018-12-03] MEDS ORDERED: KETOROLAC 30 MG/ML INJ ONE (15:49)
--- NOTE | 2018-12-03 15:51 | ER ---
Nurse's Notes [facility] Name: Azam Eastman Age: 58 yrs Sex: Male : 1960 Arrival Date: 12/03/2018 Time: 11:47 Bed 18 Private MD: None, None Diagnosis: Low back pain Presentation: 12/03 11:59 Presenting complaint: Patient states: i think my kidneys are infected, started tw2 yesterday, i feel like i am going to pass out from the pain. Transition of care: patient was not received from another setting of care. Onset of symptoms was December 03, 2018. Risk Assessment: Do you want to hurt yourself or someone else? Patient reports no desire to harm self or others. Initial Sepsis Screen: Does the patient meet any 2 criteria? No. Patient's initial sepsis screen is negative. Does the patient have a suspected source of infection? No. Patient's initial sepsis screen is negative. Care prior to arrival: None. 11:59 Method Of Arrival: Wheelchair tw2 11:59 Acuity: YOILS 3 tw2 Triage Assessment: 12:01 General: Appears uncomfortable, obese, unkempt, Behavior is cooperative. Pain: tw2 Complains of pain in right mid back and right low back. Musculoskeletal: Circulation, motion, and sensation intact. Historical: - Allergies: 12:01 No Known Allergies; tw2 - Home Meds: 12:01 None [Active]; tw2 - PMHx: 12:01 kidney infection; Kidney stones; Cholelithiasis; Arthritis; tw2 - PSHx: 12:01 L knee; tw2 - Immunization history:: Adult Immunizations. - Social history:: Smoking status: . - Ebola Screening: : Patient denies travel to an Ebola-affected area in the 21 days before illness onset. Screenin:29 Abuse screen: Denies threats or abuse. Denies injuries from another. Nutritional ls4 screening: No deficits noted. Tuberculosis screening: No symptoms or risk factors identified. Fall Risk None identified. Assessment: 13:02 General: Appears uncomfortable, Behavior is calm, cooperative. ls4 13:02 Neuro: No deficits noted. Neuro: Level of Consciousness is awake, alert, obeys ls4 commands, Oriented to person, place, time, situation. Cardiovascular: Reports None. Respiratory: Airway is patent Respiratory effort is even, unlabored, Respiratory pattern is regular. Vital Signs: 12:00 BP 140 / 80; Pulse 65; Resp 19; Temp 97.5(O); Pulse Ox 98% on R/A; Weight 161.03 kg tw2 (R); Height 5 ft. 11 in. (180.34 cm); Pain 10/10; 13:02 BP 128 / 78; Pulse 66; Resp 16; Pulse Ox 99% on R/A; Pain 7/10; ls4 15:07 BP 132 / 76; Pulse 66; Resp 16; Pulse Ox 98% on R/A; Pain 5/10; ls4 16:02 BP 128 / 68; Pulse 64; Resp 16; Pulse Ox 99% on R/A; Pain 3/10; ls4 12:00 Body Mass Index 49.51 (161.03 kg, 180.34 cm) tw2 ED Course: 11:47 Patient arrived in ED. mr 11:47 None, None is Private Physician. mr 12:00 Triage completed. tw2 12:00 Arm band placed on. tw2 12:51 Monster Magaña, RENATA is PHCP. pm1 12:51 Harry Frias MD is Attending Physician. pm1 12:55 Marquita Skinner, BULMARO is Primary Nurse. ls4 13:09 Radiology exam delayed due to lab results not completed at this time. (BUN/Creatinine). jg6 14:38 CT Abd/Pelvis - W/Contrast: IV contrast only In Process Unspecified. EDMS 15:29 Patient has correct armband on for positive identification. Bed in low position. Call ls4 light in reach. Side rails up X 1. 15:30 No provider procedures requiring assistance completed. ls4 16:20 IV discontinued, intact, bleeding controlled, No redness/swelling at site. Pressure ls4 dressing applied. Administered Medications: 13:36 Drug: NS 0.9% 1000 ml Route: IV; Rate: 1000 ml; Site: right antecubital; ls4 13:36 Drug: morphine 4 mg Route: IVP; Site: right antecubital; ls4 13:56 Follow up: Response: No adverse reaction; Marked relief of symptoms ls4 13:36 Drug: Zofran 4 mg Route: IVP; Site: right antecubital; ls4 13:56 Follow up: Response: No adverse reaction; Marked relief of symptoms ls4 15:40 Drug: TORadol 30 mg Route: IVP; Site: right antecubital; ls4 15:50 Follow up: Response: No adverse reaction; Marked relief of symptoms ls4 Outcome: 15:50 Discharge ordered by . pm1 16:11 Patient left the ED. ls4 16:18 Discharged to home ambulatory. ls4 16:18 Condition: stable 16:18 Discharge instructions given to patient, Instructed on discharge instructions, follow up and referral plans. medication usage, Demonstrated understanding of instructions, follow-up care, medications. Signatures: Dispatcher [employer] KENISHAOR RangelEmilia guerra mr MagañaMonster, RENATA [employer] pm1 Maral Vazquez RN RN tw2 Ginger Montejo jg6 Marquita Skinner RN RN ls4
--- NOTE | 2018-12-03 15:52 | EDPHYS ---
Physician Documentation [facility] Name: Azam Eastman Age: 58 yrs Sex: Male : 1960 Arrival Date: 12/03/2018 Time: 11:47 Bed 18 Private MD: None, None ED Physician Harry Frias HPI: 12/03 14:30 This 58 yrs old Male presents to ER via Wheelchair with complaints of Back pm1 Pain. 14:30 The patient presents with pain that is acute. The symptoms are located in the right low pm1 back. Onset: The symptoms/episode began/occurred yesterday. The pain does not radiate. Associated signs and symptoms: Pertinent negatives: constipation, dysuria, fever, headache, nausea, numbness, tingling, vomiting, Diarrhea. The problem was sustained from unknown cause. Modifying factors: The patient symptoms are alleviated by nothing, the patient symptoms are aggravated by nothing. Severity of symptoms: in the emergency department the symptoms are actually worse. The patient has experienced similar episodes in the past, a few times. The patient has not recently seen a physician. Historical: - Allergies: 12: No Known Allergies; tw2 - Home Meds: 12:01 None [Active]; tw2 - PMHx: 12:01 kidney infection; Kidney stones; Cholelithiasis; Arthritis; tw2 - PSHx: 12:01 L knee; tw2 - Immunization history:: Adult Immunizations. - Social history:: Smoking status: . - Ebola Screening: : Patient denies travel to an Ebola-affected area in the 21 days before illness onset. ROS: 14:30 Constitutional: Negative for fever, chills, and weight loss, Eyes: Negative for injury, pm1 pain, redness, and discharge, ENT: Negative for injury, pain, and discharge, Neck: Negative for injury, pain, and swelling, Cardiovascular: Negative for chest pain, palpitations, and edema, Respiratory: Negative for shortness of breath, cough, wheezing, and pleuritic chest pain, Abdomen/GI: Negative for abdominal pain, nausea, vomiting, diarrhea, and constipation. 14:30 : Negative for injury, bleeding, discharge, and swelling, MS/Extremity: Negative for injury and deformity, Skin: Negative for injury, rash, and discoloration, Neuro: Negative for headache, weakness, numbness, tingling, and seizure. 14:30 Back: Positive for flank pain, on the right, Negative for injury or acute deformity, decreased range of motion. Exam: 14:30 Constitutional: This is a well developed, well nourished patient who is awake, alert, pm1 and in no acute distress. Head/Face: Normocephalic, atraumatic. Eyes: Pupils equal round and reactive to light, extra-ocular motions intact. Lids and lashes normal. Conjunctiva and sclera are non-icteric and not injected. Cornea within normal limits. Periorbital areas with no swelling, redness, or edema. ENT: Nares patent. No nasal discharge, no septal abnormalities noted. Tympanic membranes are normal and external auditory canals are clear. Oropharynx with no redness, swelling, or masses, exudates, or evidence of obstruction, uvula midline. Mucous membranes moist. Neck: Trachea midline, no thyromegaly or masses palpated, and no cervical lymphadenopathy. Supple, full range of motion without nuchal rigidity, or vertebral point tenderness. No Meningismus. Chest/axilla: Normal chest wall appearance and motion. Nontender with no deformity. No lesions are appreciated. Cardiovascular: Regular rate and rhythm with a normal S1 and S2. No gallops, murmurs, or rubs. Normal PMI, no JVD. No pulse deficits. Respiratory: Lungs have equal breath sounds bilaterally, clear to auscultation and percussion. No rales, rhonchi or wheezes noted. No increased work of breathing, no retractions or nasal flaring. Abdomen/GI: Soft, non-tender, with normal bowel sounds. No distension or tympany. No guarding or rebound. No evidence of tenderness throughout. 14:30 Skin: Warm, dry with normal turgor. Normal color with no rashes, no lesions, and no evidence of cellulitis. MS/ Extremity: Pulses equal, no cyanosis. Neurovascular intact. Full, normal range of motion. 14:30 Back: pain, that is mild, of the right low back, vertebral tenderness, is not appreciated. 14:30 Neuro: Orientation: is normal, Motor: is normal, moves all fours, Sensation: is normal, no obvious gross deficits. Vital Signs: 12:00 BP 140 / 80; Pulse 65; Resp 19; Temp 97.5(O); Pulse Ox 98% on R/A; Weight 161.03 kg tw2 (R); Height 5 ft. 11 in. (180.34 cm); Pain 10/10; 13:02 BP 128 / 78; Pulse 66; Resp 16; Pulse Ox 99% on R/A; Pain 7/10; ls4 15:07 BP 132 / 76; Pulse 66; Resp 16; Pulse Ox 98% on R/A; Pain 5/10; ls4 16:02 BP 128 / 68; Pulse 64; Resp 16; Pulse Ox 99% on R/A; Pain 3/10; ls4 12:00 Body Mass Index 49.51 (161.03 kg, 180.34 cm) tw2 MDM: 13:02 Patient medically screened. pm1 15:01 Data reviewed: vital signs. Data interpreted: Pulse oximetry: on room air is 98 %. pm1 Interpretation: normal. Counseling: I had a detailed discussion with the patient and/or guardian regarding: the historical points, exam findings, and any diagnostic results supporting the discharge/admit diagnosis, lab results, radiology results, the need for outpatient follow up, to return to the emergency department if symptoms worsen or persist or if there are any questions or concerns that arise at home. 12/03 13:06 Order name: Basic Metabolic Panel; Complete Time: 14:02 pm1 12/03 13:06 Order name: CBC with Diff; Complete Time: 14:02 pm1 12/03 13:06 Order name: Creatinine for Radiology; Complete Time: 14:02 pm1 12/03 13:06 Order name: Hepatic Function; Complete Time: 14:02 pm1 12/03 13:06 Order name: Lipase; Complete Time: 14:02 pm1 12/03 13:34 Order name: Urine Dipstick--Ancillary (enter results); Complete Time: 14:02 em1 12/03 13:06 Order name: IV Saline Lock; Complete Time: 13:36 pm1 12/03 13:06 Order name: Labs collected and sent; Complete Time: 13:37 pm1 12/03 13:06 Order name: CT Abd/Pelvis - W/Contrast: IV contrast only; Complete Time: 14:48 pm1 Administered Medications: 13:36 Drug: NS 0.9% 1000 ml Route: IV; Rate: 1000 ml; Site: right antecubital; ls4 13:36 Drug: morphine 4 mg Route: IVP; Site: right antecubital; ls4 13:56 Follow up: Response: No adverse reaction; Marked relief of symptoms ls4 13:36 Drug: Zofran 4 mg Route: IVP; Site: right antecubital; ls4 13:56 Follow up: Response: No adverse reaction; Marked relief of symptoms ls4 15:40 Drug: TORadol 30 mg Route: IVP; Site: right antecubital; ls4 15:50 Follow up: Response: No adverse reaction; Marked relief of symptoms ls4 Disposition: 12/04 08:02 Co-signature as Attending Physician, Harry Frias MD I agree with the assessment and kdr plan of care. Disposition: 12/03/18 15:50 Discharged to Home. Impression: Low back pain. - Condition is Stable. - Discharge Instructions: Back Pain, Adult, Musculoskeletal Pain, Back Injury Prevention, [id number]. - Prescriptions for Naprosyn 500 mg Oral Tablet - take 1 tablet by ORAL route 2 times per day take with food; 30 tablet. Tylenol- Codeine #3 300-30 mg Oral Tablet - take 2 tablets by ORAL route every 6 hours As needed; 20 tablet. Cyclobenzaprine 10 mg Oral Tablet - take 1 tablet by ORAL route every 8 hours As needed; 30 tablet. - Work release form, Medication Reconciliation Form, Thank You Letter, Prescription Opioid Use form. - Follow up: Emergency Department; When: As needed; Reason: Worsening of condition. Follow up: Private Physician; When: 2 - 3 days; Reason: Recheck today's complaints, Continuance of care, Re-evaluation by your physician. - Problem is new. - Symptoms have improved. Signatures: Dispatcher [employer] EDGA Harry Frias MD MD kdr Monster Magaña NP BRIMMING MACHINE OPERATOR pm1 Maral Vazquez RN RN tw2 Marquita Skinner RN RN ls4 Corrections: (The following items were deleted from the chart) 12/03 16:11 15:50 12/03/2018 15:50 Discharged to Home. Impression: Low back pain. Condition is ls4 Stable. Forms are Medication Reconciliation Form, Thank You Letter, Antibiotic Education, Prescription Opioid Use. Follow up: Emergency Department; When: As needed; Reason: Worsening of condition. Follow up: Private Physician; When: 2 - 3 days; Reason: Recheck today's complaints, Continuance of care, Re-evaluation by your physician. Problem is new. Symptoms have improved. pm1
== END 2018-12-03 16:11 | disposition home or self-care (01) ==
LOC: ER 11:42
DX: M54.5 Low back pain (principal); Z87.442 Personal history of urinary calculi
CPT/HCPCS: 36415; 74177; 80048; 80076; 81003; 83690; 85025; 96374; 96375; 99283; J2405; J7030; Q9967

== ENCOUNTER 2019-05-12 06:17 | Emergency (ER) | payer SELFPAY ==
[2019-05-12 06:47] LABS: Absolute Lymphocytes (CBC) 1.4 K/uL (0.7-4.9); Basophils % 0.7 % (0-1.3); Hematocrit 41.8 % (39.6-49.0); Lymphocytes % 24.1 % (15.3-44.8); MPV 8.3 fL (7.6-11.3); RBC Red Blood Cell Count 4.63 M/uL (4.33-5.43)
[2019-05-12 06:48] LABS: Protime INR 0.95
[2019-05-12] MEDS ORDERED: IPRATROPIUM BROM 0.5MG/2.5ML ONE (06:53)
[2019-05-12] MEDS ORDERED: IBUPROFEN 400 MG TAB ONE (06:53)
[2019-05-12] MEDS ORDERED: HYDROCODONE/CHLORPHEN 5 ML/OSYR ONE (06:53)
[2019-05-12] MEDS ORDERED: ACETAMINOPHEN 500 MG TAB ONE (06:53)
[2019-05-12] MEDS ORDERED: ALBUTEROL 2.5 MG/3 ML NEB SOL ONE (06:53)
[2019-05-12 07:06] LABS: ALT/SGPT 27 U/L (12-78); AST/SGOT 14 U/L (15-37); Albumin 3.5 g/dL (3.4-5.0); Alkaline Phosphatase 66 U/L (45-117); BUN Blood Urea Nitrogen 12 mg/dL (7-18); Bicarbonate 24 mmol/L (21-32); Bilirubin Direct 0.1 mg/dL (0-0.2); Bilirubin Total 0.3 mg/dL (0.2-1.0); Glucose Level 146 mg/dL (74-106); Magnesium 2.2 mg/dL (1.8-2.4); NT PRO-BNP 120 pg/mL (<125); Potassium 3.7 mmol/L (3.5-5.1); Protein, Total 7.3 g/dL (6.4-8.2); Sodium Level 141 mmol/L (136-145); Troponin (Emerg Dept Use Only) < 0.02 ng/mL (0.0-0.045)
--- NOTE | 2019-05-12 08:07 | EKG ---
Test Date: 2019-05-12 Test Time: 06:40:03 Therapeutic Recreation Assistant: KATIE MEASUREMENT RESULTS: Intervals: Rate: 70 [place]: 142 QRSD: 86 QT: 396 QTc: 427 [place]: P: 11 NJ: 142 QRS: 33 T: 29 INTERPRETIVE STATEMENTS: Normal sinus rhythm Normal ECG Compared to ECG 04/14/2018 10:52:00 No significant changes Electronically Signed On 05-12-19 08:07:11 CDT by Danyle Giang
--- NOTE | 2019-05-12 08:29 | RAD REPORT ---
EXAM DESCRIPTION: Kelly Single View05/12/2019 6:48 am CLINICAL HISTORY: Cough COMPARISON: March 2018 FINDINGS: The lungs appear clear of acute infiltrate. The heart is normal size IMPRESSION: No acute abnormalities displayed
[2019-05-12] MEDS ORDERED: METHYLPREDNISOLONE 125 MG INJ ONE (08:45)
--- NOTE | 2019-05-12 08:48 | ER ---
Nurse's Notes [facility] Name: Azam Eastman Age: 58 yrs Sex: Male : 1960 Arrival Date: 05/12/2019 Time: 06:18 Bed 6 Private MD: Diagnosis: Acute bronchitis, unspecified Presentation: 05/12 06:26 Presenting complaint: Patient states: productive cough X1.5 weeks. headache x4 days. pt ak1 c/o fatigue and SOB X4 days. pt stated chest congesting and yellow sputum. Transition of care: patient was not received from another setting of care. Onset of symptoms is unknown. Risk Assessment: Do you want to hurt yourself or someone else? Patient reports no desire to harm self or others. Initial Sepsis Screen: Does the patient meet any 2 criteria? No. Patient's initial sepsis screen is negative. Does the patient have a suspected source of infection? No. Patient's initial sepsis screen is negative. Care prior to arrival: None. 06:26 Method Of Arrival: Wheelchair ak1 06:26 Acuity: YOLIS 3 ak1 Triage Assessment: 06:29 General: Appears in no apparent distress. Behavior is calm, cooperative. Pain: ak1 Complains of pain in headache. EENT: No signs and/or symptoms were reported regarding the EENT system. Neuro: Level of Consciousness is awake, alert, obeys commands, Oriented to person, place, time, situation, Sewage Plant Operator are equal bilaterally Moves all extremities. Gait is steady, Speech is normal. Cardiovascular: No deficits noted. Respiratory: Reports shortness of breath at rest cough that is productive, Airway is patent Respiratory effort is unlabored, Onset: The symptoms/episode began/occurred 1.5 weeks [place], the patient has mild shortness of breath. GI: No signs and/or symptoms were reported involving the gastrointestinal system. : No signs and/or symptoms were reported regarding the genitourinary system. Derm: No signs and/or symptoms reported regarding the dermatologic system. Musculoskeletal: Range of motion: intact in all extremities, Reports fatigue. Historical: - Allergies: 06:29 No Known Allergies; ak1 - Home Meds: :29 None [Active]; ak1 - PMHx: :29 Arthritis; kidney infection; Kidney stones; Cholelithiasis; ak1 - PSHx: 06:29 L knee; ak1 - Immunization history:: Adult Immunizations unknown. - Social history:: Smoking status: Patient/guardian denies using tobacco. - Ebola Screening: : No symptoms or risks identified at this time. Screenin:30 Abuse screen: Denies threats or abuse. Denies injuries from another. Nutritional ak1 screening: No deficits noted. Tuberculosis screening: No symptoms or risk factors identified. Fall Risk None identified. Assessment: 06:31 Reassessment: Patient appears in no apparent distress at this time. No changes from ak1 previously documented assessment. Patient and/or family updated on plan of care and expected duration. Pain level reassessed. see triage assessment. 07:00 Reassessment: RECD REPORT FROM LADAN CHAMBERLAIN. 58YO HM P/W RESPIRATORY S/S. NEB IN PROCESS, bp RAD RESULTS PENDING. 07:00 Cardiovascular: Rhythm is sinus rhythm. Respiratory: Airway is patent Breath sounds are bp coarse bilaterally. 07:00 Respiratory: Respiratory effort is even, Respiratory pattern is regular, symmetrical. bp 08:25 Reassessment: ALL CURRENT ORDERS COMPLETED, RESULTS PENDING. bp 08:58 Reassessment: PT D/C HOME AMBULATORY, DX WITH BRONCHITIS. bp Vital Signs: 06:26 BP 195 / 90; Pulse 76; Resp 18; Temp 97.7(O); Pulse Ox 100% on R/A; Weight 154.22 kg ak1 (R); Height 5 ft. 11 in. (180.34 cm) (R); Pain 9/10; 07:00 BP 134 / 68; Pulse 70; Resp 10; Pulse Ox 98% ; bp 08:00 BP 129 / 69; Pulse 69; Resp 14; Pulse Ox 96% on R/A; bp 08:58 BP 105 / 91; Pulse 71; Resp 16; Temp 98; Pulse Ox 95% ; bp 06:26 Body Mass Index 47.42 (154.22 kg, 180.34 cm) ak1 ED Course: 06:18 Patient arrived in ED. am2 06:26 Arm band placed on Patient placed in an exam room, on a stretcher, on pulse oximetry, ak1 Patient notified of wait time. 06:27 Triage completed. ak1 06:28 Ed Delgado PA is PHCP. cp 06:29 Arturo Carmichael MD is Attending Physician. cp 06:31 Patient has correct armband on for positive identification. Placed in gown. Bed in low ak1 position. Call light in reach. Side rails up X 1. Pulse ox on. NIBP on. 06:38 Initial lab(s) drawn, by ED staff, sent to lab. First set of blood cultures drawn by ED ak1 staff, EKG done, by ED staff, reviewed by Arturo Carmichael MD X-ray(s) taken. 06:39 No provider procedures requiring assistance completed. Inserted saline lock: 20 gauge ak1 in right antecubital area, using aseptic technique. ,using aseptic technique. placed by Ladan Lee RN Blood collected. 06:52 XRAY Chest (1 view) In Process Unspecified. EDMS 07:18 Melvin Del Real RN is Primary Nurse. bp 07:52 Throat Culture Sent. bp 08:46 Bronson Guerra MD is Referral Physician. cp 08:59 IV discontinued, intact, bleeding controlled, No redness/swelling at site. Pressure bp dressing applied. Administered Medications: 06:55 Drug: Albuterol - atroVENT (3:1) (2.5 mg - 0.5 mg) 3 ml Route: Nebulizer; ea 07:52 Follow up: Response: No adverse reaction bp 06:55 Drug: Tussionex Pennkinetic ER 5 ml Route: PO; ea 07:52 Follow up: Response: No adverse reaction bp 06:55 Drug: Ibuprofen 800 mg Route: PO; ea 07:52 Follow up: Response: Pain is decreased bp 06:55 Drug: Tylenol 1000 mg Route: PO; ea 07:52 Follow up: Response: Pain is decreased bp 08:40 Drug: SOLU-Medrol 125 mg Route: IVP; Site: right antecubital; bp 08:44 Follow up: Response: No adverse reaction bp Outcome: 08:46 Discharge ordered by MD. cp 08:59 Discharged to home ambulatory, with family. bp 08:59 Condition: stable 08:59 Discharge instructions given to patient, Instructed on discharge instructions, follow up and referral plans. medication usage, Demonstrated understanding of instructions, follow-up care, medications, Prescriptions given X 3. 08:59 Patient left the ED. bp Signatures: Dispatcher [employer] EDMS Kimberly De La Cruz RN RN ak1 Ed Delgado PA PA cp Moreno, Amanda am2 Ladan Bardales, RN RN ea Melvin Del Real RN RN bp
--- NOTE | 2019-05-12 08:48 | EDPHYS ---
Physician Documentation [facility] Name: Azam Eastman Age: 58 yrs Sex: Male : 1960 Arrival Date: 05/12/2019 Time: 06:18 Bed 6 Private MD: ED Physician Arturo Carmichael HPI: 05/12 06:40 This 58 yrs old Male presents to ER via Wheelchair with complaints of cp Productive Cough, fatigue, Headache. 06:40 The patient or guardian reports cough, that is constant, with productive sputum, that cp is yellow. Onset: The symptoms/episode began/occurred 1.5 week(s) ago. 06:40 Severity of symptoms: in the emergency department the symptoms are unchanged, despite cp home interventions. 06:40 Associated signs and symptoms: Pertinent positives: sore throat, Pertinent negatives: cp chest pain, diarrhea, fever, vomiting. Historical: - Allergies: 06:29 No Known Allergies; ak1 - Home Meds: 06:29 None [Active]; ak1 - PMHx: 06:29 Arthritis; kidney infection; Kidney stones; Cholelithiasis; ak1 - PSHx: 06:29 L knee; ak1 - Immunization history:: Adult Immunizations unknown. - Social history:: Smoking status: Patient/guardian denies using tobacco. - Ebola Screening: : No symptoms or risks identified at this time. ROS: 06:45 Constitutional: Negative for body aches, chills, fever, poor PO intake. cp 06:45 Eyes: Negative for injury, pain, redness, and discharge. cp 06:45 ENT: Positive for sore throat, Negative for drainage from ear(s), ear pain, difficulty swallowing, difficulty handling secretions. 06:45 Cardiovascular: Negative for chest pain, edema, palpitations. 06:45 Respiratory: Positive for cough, with yellow sputum, Negative for wheezing. 06:45 Abdomen/GI: Negative for abdominal pain, nausea, vomiting, and diarrhea, constipation, black/tarry stool, rectal bleeding. 06:45 Back: Negative for pain at rest, pain with movement, radiated pain. 06:45 Skin: Negative for rash. 06:45 Neuro: Positive for headache, weakness, Negative for altered mental status, dizziness. 06:45 All other systems are negative. Exam: 06:48 ECG was reviewed by the Attending Physician. cp 06:53 Constitutional: The patient appears in no acute distress, alert, awake, cp non-diaphoretic, non-toxic, well developed, well nourished, obese. 06:53 Head/Face: Normocephalic, atraumatic. cp 06:53 Eyes: Periorbital structures: appear normal, Conjunctiva: normal, no exudate, no injection, Sclera: no appreciated abnormality, Lids and lashes: appear normal, bilaterally. 06:53 ENT: External ear(s): are unremarkable, Ear canal(s): are normal, clear, TM's: dullness, bilaterally, Nose: is normal, Mouth: Lips: moist, Oral mucosa: moist, Posterior pharynx: Airway: no evidence of obstruction, patent, Tonsils: no enlargement, no exudate, swelling, is not appreciated, erythema, that is mild, exudate, is not appreciated. 06:53 Neck: ROM/movement: is normal, is supple, without pain, no range of motions limitations, no meningismus, no nuchal rigidity. 06:53 Chest/axilla: Inspection: normal, Palpation: is normal, no crepitus, no tenderness. 06:53 Cardiovascular: Rate: normal, Rhythm: regular, Edema: is not appreciated, JVD: is not appreciated. 06:53 Respiratory: the patient does not display signs of respiratory distress, Respirations: labored breathing, is not present, accessory muscle usage, is absent, intercostal retractions, are absent, splinting, is not noted, tachypnea, is not appreciated, Breath sounds: bronchial sounds, that are moderate, are heard diffusely, decreased breath sounds, are not appreciated, stridor, is not appreciated, + upper airway congestion. wheezing: is not appreciated. 06:53 Abdomen/GI: Inspection: obese Bowel sounds: normal, in all quadrants, Palpation: soft, in all quadrants, mild abdominal tenderness, in the epigastric area, rebound tenderness, is not appreciated, voluntary guarding, is not appreciated, involuntary guarding, is not appreciated. 06:53 Back: pain, is absent, ROM is normal. 06:53 Skin: no rash present. 06:53 Neuro: Orientation: to person, place \T\ time. Mentation: is normal, Cerebellar function: is grossly normal, Motor: moves all fours, strength is normal, Sensation: is normal. Vital Signs: 06:26 BP 195 / 90; Pulse 76; Resp 18; Temp 97.7(O); Pulse Ox 100% on R/A; Weight 154.22 kg ak1 (R); Height 5 ft. 11 in. (180.34 cm) (R); Pain 9/10; 07:00 BP 134 / 68; Pulse 70; Resp 10; Pulse Ox 98% ; bp 08:00 BP 129 / 69; Pulse 69; Resp 14; Pulse Ox 96% on R/A; bp 08:58 BP 105 / 91; Pulse 71; Resp 16; Temp 98; Pulse Ox 95% ; bp 06:26 Body Mass Index 47.42 (154.22 kg, 180.34 cm) ak1 MDM: 06:32 Patient medically screened. cp 08:45 Data reviewed: vital signs, nurses notes, lab test result(s), EKG, radiologic studies, cp plain films. 08:45 Differential Diagnosis: Bronchitis Influenza Pharyngitis Asthma Exacerbation Viral cp Syndrome Pneumonia. Test interpretation: by ED physician or midlevel provider: ECG, plain radiologic studies. 08:45 Response to treatment: the patient's symptoms have markedly improved after treatment, cp and as a result, I will discharge patient. 05/12 06:28 Order name: Basic Metabolic Panel tw4 05/12 06:28 Order name: CBC with Diff tw4 05/12 06:28 Order name: LFT's tw4 05/12 06:28 Order name: Magnesium tw4 05/12 06:28 Order name: NT PRO-BNP; Complete Time: 07:11 tw4 05/12 06:28 Order name: PT-INR; Complete Time: 07:11 tw4 05/12 06:28 Order name: Troponin (emerg Dept Use Only); Complete Time: 07:11 tw4 05/12 06:28 Order name: XRAY Chest (1 view); Complete Time: 08:33 tw4 05/12 06:32 Order name: Basic Metabolic Panel; Complete Time: 07:11 EDMS 05/12 07:12 Interpretation: Normal except: CL 110; GLUC 146; GFR 62; CA 8.3. cp 05/12 06:33 Order name: CBC with Automated Diff; Complete Time: 07:11 EDMS 05/12 06:33 Order name: Liver (Hepatic) Function; Complete Time: 07:11 EDMS 05/12 07:12 Interpretation: Normal except: AST 14; GLOB 3.8; A/G 0.9. cp 05/12 06:33 Order name: Magnesium; Complete Time: 07:11 EDMS 05/12 06:47 Order name: Strep; Complete Time: 08:33 cp 05/12 07:16 Order name: Throat Culture EDMS 05/12 06:28 Order name: EKG; Complete Time: 06:33 tw4 05/12 06:28 Order name: Cardiac monitoring; Complete Time: 06:38 tw4 05/12 06:28 Order name: EKG - Nurse/Tech; Complete Time: 06:38 tw4 05/12 06:28 Order name: IV Saline Lock; Complete Time: 06:38 tw4 05/12 06:28 Order name: Labs collected and sent; Complete Time: 06:38 tw4 05/12 06:28 Order name: O2 Per Protocol; Complete Time: 06:32 tw4 05/12 06:28 Order name: O2 Sat Monitoring; Complete Time: 06:32 tw4 EC:48 Rate is 70 beats/min. Rhythm is regular. AK interval is normal. QRS interval is normal. cp QT interval is normal. Interpreted by me. Reviewed by me. Administered Medications: 06:55 Drug: Albuterol - atroVENT (3:1) (2.5 mg - 0.5 mg) 3 ml Route: Nebulizer; ea 07:52 Follow up: Response: No adverse reaction bp 06:55 Drug: Tussionex Pennkinetic ER 5 ml Route: PO; ea 07:52 Follow up: Response: No adverse reaction bp 06:55 Drug: Ibuprofen 800 mg Route: PO; ea 07:52 Follow up: Response: Pain is decreased bp 06:55 Drug: Tylenol 1000 mg Route: PO; ea 07:52 Follow up: Response: Pain is decreased bp 08:40 Drug: SOLU-Medrol 125 mg Route: IVP; Site: right antecubital; bp 08:44 Follow up: Response: No adverse reaction bp Disposition: 05/12/19 08:46 Discharged to Home. Impression: Acute bronchitis, unspecified. - Condition is Stable. - Discharge Instructions: Acute Bronchitis, Adult. - Prescriptions for prednisone 50 mg Oral tablet - take 1 tablet by ORAL route once daily for 5 days start morning of 05-13-2019; 5 tablet. Albuterol Sulfate 90 mcg/actuation - inhale 1-2 puff by INHALATION route every 4-6 hours; 1 Inhaler. Guaifenesin AC 10- 100 mg/5 mL Oral Liquid - take 10 milliliters by ORAL route every 4 hours As needed; 180 milliliter. - Work release form, Medication Reconciliation Form, Thank You Letter, Antibiotic Education, Prescription Opioid Use form. - Follow up: Bronson Guerra MD; When: 1 - 2 days; Reason: Recheck today's complaints. Signatures: Dispatcher [employer] EDMS Kimberly De La Cruz RN RN ak1 Ed Delgado PA PA cp Ladan Bardales RN RN Melvin Jones RN RN bp Arturo Carmichael MD MD tw4 Corrections: (The following items were deleted from the chart) 07:12 07:12 Normal except: CL 110; GLUC 146; GFR 62. cp cp 08:46 08:46 05/12/2019 08:46 Discharged to Home. Impression: Bronchitis, not specified as cp acute or chronic. Condition is Stable. Forms are Medication Reconciliation Form, Thank You Letter, Antibiotic Education, Prescription Opioid Use. Follow up: Bronson Guerra; When: 1 - 2 days; Reason: Recheck today's complaints. cp 08:59 08:46 05/12/2019 08:46 Discharged to Home. Impression: Acute bronchitis, unspecified. bp Condition is Stable. Forms are Medication Reconciliation Form, Thank You Letter, Antibiotic Education, Prescription Opioid Use. Follow up: Bronson Guerra; When: 1 - 2 days; Reason: Recheck today's complaints. cp
== END 2019-05-12 08:59 | disposition home or self-care (01) ==
LOC: ER 06:17
DX: J20.9 Acute bronchitis, unspecified (principal)
CPT/HCPCS: 36415; 71045; 80048; 80076; 83735; 83880; 84484; 85025; 85610; 87070; 87081; 93005; 94640; 96374; 99285; J2930

== ENCOUNTER 2019-12-29 14:18 | Emergency (ER) | payer OTHER, SELFPAY ==
[2019-12-29] MEDS ORDERED: NA CHLORIDE 0.9% 1,000 ML ONE (15:43)
[2019-12-29] MEDS ORDERED: ONDANSETRON 4 MG/2 ML VIAL ONE ×2 (15:43→17:10)
[2019-12-29] MEDS ORDERED: KETOROLAC 30 MG/ML INJ ONE (15:43)
[2019-12-29 16:01] LABS: Absolute Lymphocytes (CBC) 1.4 K/uL (0.7-4.9); Basophils % 1.3 % (0-1.3); Hematocrit 46.9 % (39.6-49.0); Lymphocytes % 36.9 % (15.3-44.8); MPV 8.8 fL (7.6-11.3); RBC Red Blood Cell Count 5.28 M/uL (4.33-5.43)
[2019-12-29 16:05] LABS: Protime INR 0.97
--- NOTE | 2019-12-29 16:09 | RAD REPORT ---
EXAM DESCRIPTION: RAD - Chest Single View - 12/29/2019 3:55 pm CLINICAL HISTORY: COUGHweakness, shortness of breath COMPARISON: April 2019 portable TECHNIQUE: AP portable chest image was obtained 12/29/2019 3:55 pm . FINDINGS: Lungs are clear. Heart and vasculature are normal. No measurable pleural effusion and no p neumothorax. No acute bony abnormality seen. No acute aortic findings suspected. IMPRESSION: No acute cardiopulmonary process. No significant interval change.
--- NOTE | 2019-12-29 16:11 | RAD REPORT ---
EXAM DESCRIPTION: CT - Head Brain Wo Cont - 12/29/2019 4:05 pm CLINICAL HISTORY: HEADACHE COMPARISON: Head Brain Wo Cont dated 04/14/2018 TECHNIQUE: Axial 5 mm thick images of the head were obtained without IV contrast. All CT scans are performed using dose optimization technique as appropriate and may include automated exposure control or mA/KV adjustment according to patient size. FINDINGS: No intracranial hemorrhage, mass, edema or shift of mid-line structures. No acute infarcti on changes seen. No abnormal extra-axial fluid collections. Ventricles are normal. Mastoid air cells and visualized portions of the paranasal sinuses are clear. No acute bony findings. No significant changes occurred since the March 2018 study. IMPRESSION: Negative non-contrast CT head examination.
[2019-12-29 16:20] LABS: ALT/SGPT 33 U/L (12-78); AST/SGOT 20 U/L (15-37); Alkaline Phosphatase 74 U/L (45-117); BUN Blood Urea Nitrogen 14 mg/dL (7-18); Bicarbonate 24 mmol/L (21-32); Bilirubin Direct 0.1 mg/dL (0-0.2); Bilirubin Total 0.2 mg/dL (0.2-1.0); Blood Morphology Comment NOT SEEN (NOT SEEN); Glucose Level 97 mg/dL (74-106); Magnesium 2.4 mg/dL (1.8-2.4); NT PRO-BNP 22 pg/mL (<125); Platelet Estimate ADEQ; Protein, Total 8.3 g/dL (6.4-8.2); Sodium Level 138 mmol/L (136-145); Troponin (Emerg Dept Use Only) < 0.02 ng/mL (0.0-0.045); Urine White Blood Cell Casts OK
--- NOTE | 2019-12-29 17:06 | ER ---
Nurse's Notes [facility] Name: Azam Eastman Age: 59 yrs Sex: Male : 1960 Arrival Date: 12/29/2019 Time: 14:19 Bed 25 Private MD: Diagnosis: Weakness;Headache Presentation: 12/28 14:25 Chief complaint: Patient states: feeling weak for a couple days, joints hurt, iw +headache, and feels sweaty, cough every once in a while, denies SOB, denies fever. Coronavirus screen: Patient reports a cough. Patient denies travel on a cruise ship or to a country the [facility] currently lists as an affected area. Patient denies contact with known and/or suspected case of COVID-19. Ebola Screen: Patient negative for fever greater than or equal to 101.5 degrees Fahrenheit, and additional compatible Ebola Virus Disease symptoms Patient denies exposure to infectious person. Patient denies travel to an Ebola-affected area in the 21 days before illness onset. No symptoms or risks identified at this time. Initial Sepsis Screen: Does the patient meet any 2 criteria? No. Patient's initial sepsis screen is negative. Does the patient have a suspected source of infection? No. Patient's initial sepsis screen is negative. Risk Assessment: Do you want to hurt yourself or someone else? Patient reports no desire to harm self or others. 14:25 Method Of Arrival: Ambulatory iw 14:25 Acuity: YOLIS 3 iw 16:12 Onset of symptoms was December 28, 2019 at 11:00. ls4 Triage Assessment: 15:59 Headache History: The patient has had previous headaches and this one is similar to ls4 previous episodes. General: Appears in no apparent distress. uncomfortable, Behavior is calm, cooperative. Pain: Pain currently is 7 out of 10 on a pain scale. Quality of pain is described as aching, Pain began gradually, 1 day ago. Also complains of no other associated symptoms. Neuro: Level of Consciousness is awake, alert, obeys commands, Oriented to person, place, time, situation, Drum Puller are equal bilaterally Moves all extremities. Gait is steady, Speech is normal, Facial symmetry appears normal, Pupils are PERRLA, Cardiovascular: Reports fatigue, Denies chest pain, diaphoresis, nausea, palpitations, shortness of breath, Capillary refill < 3 seconds Respiratory: Denies cough, shortness of breath at rest, on exertion, labored breathing, pain with respiration, pain with cough, pain with movement. GI: No deficits noted. No signs and/or symptoms were reported involving the gastrointestinal system. Musculoskeletal: Circulation, motion, and sensation intact. Capillary refill < 3 seconds, Range of motion: intact in all extremities. Historical: - Allergies: 14:27 No Known Allergies; iw - PMHx: 14:27 Arthritis; Cholelithiasis; kidney infection; Kidney stones; iw - PSHx: 14:27 L knee; iw - Immunization history:: Adult Immunizations up to date. - Social history:: Smoking status: Patient/guardian denies using tobacco, the patient reports quitting approximately 10 years ago. Screenin:11 Abuse screen: Denies threats or abuse. Denies injuries from another. Nutritional ls4 screening: No deficits noted. Tuberculosis screening: No symptoms or risk factors identified. Fall Risk None identified. Vital Signs: 14:25 BP 139 / 85; Pulse 76; Resp 16; Temp 98.3; Pulse Ox 97% on R/A; Weight 145.15 kg; iw Height 5 ft. 11 in. (180.34 cm); Pain 8/10; 14:25 Body Mass Index 44.63 (145.15 kg, 180.34 cm) iw ED Course: 14:19 Patient arrived in ED. fj1 14:27 Ed Trent MD is Attending Physician. valentine 14:27 Triage completed. iw 14:30 Arm band placed on right wrist. ls4 14:31 Melvin Del Real, BULMARO is Primary Nurse. bp 15:37 Influenza Screen (a \T\ B) Sent. ls4 15:45 No provider procedures requiring assistance completed. Inserted saline lock: 20 gauge ls4 in left antecubital area, using aseptic technique. Blood collected. 15:45 Patient maintains SpO2 saturation greater than 95% on room air. ls4 15:56 XRAY Chest (1 view) In Process Unspecified. EDMS 16:05 CT Head Brain wo Cont In Process Unspecified. EDMS 16:10 EKG completed in triage. Results shown to MD. ls4 16:11 Patient has correct armband on for positive identification. Bed in low position. Call ls4 light in reach. Side rails up X 1. relocation counselor on. Pulse ox on. NIBP on. Warm blanket given. Verbal reassurance given. Diet: Patient is NPO. 17:05 Eladio Henderson MD is Referral Physician. valentine Administered Medications: 15:57 Drug: NS 0.9% 1000 ml Route: IV; Rate: 1 bolus; Site: right antecubital; ls4 15:57 Drug: Zofran (Ondansetron) 4 mg Route: IVP; Site: right antecubital; ls4 15:57 Drug: TORadol 30 mg Route: IVP; Site: right antecubital; ls4 16:55 Drug: morphine 4 mg Route: IVP; Site: left antecubital; ls4 16:55 Drug: Zofran (Ondansetron) 4 mg Route: IVP; Site: left antecubital; ls4 Outcome: 17:05 Discharge ordered by . valentine 17:39 Patient left the ED. ls4 Signatures: Dispatcher [employer] EDMS Ed Trent MD MD cha Williams, Irene, RN RN iw Peltier, Brian, RN RN bp Stewart, Lisa, RN RN [facility] Sadiq Wagoner fj
--- NOTE | 2019-12-29 17:06 | EDPHYS ---
Physician Documentation [facility] Name: Azam Eastman Age: 59 yrs Sex: Male : 1960 Arrival Date: 12/29/2019 Time: 14:19 Bed 25 Private MD: ED Physician Ed Trent HPI: 12/28 15:29 This 59 yrs old Male presents to ER via Ambulatory with complaints of valentine Headache, General Weakness. 15:29 The patient complains of pain to the top of head, forehead, left frontal area and left valentine side of the back of head. The patient describes the headache as aching. Onset: The symptoms/episode began/occurred 2 day(s) ago. Severity of symptoms: At its worst the pain was mild, moderate, in the emergency department the pain is unchanged. Historical: - Allergies: 14:27 No Known Allergies; iw - PMHx: 14:27 Arthritis; Cholelithiasis; kidney infection; Kidney stones; iw - PSHx: 14:27 L knee; iw - Immunization history:: Adult Immunizations up to date. - Social history:: Smoking status: Patient/guardian denies using tobacco, the patient reports quitting approximately 10 years ago. ROS: 15:31 Constitutional: Negative for fever, chills, and weight loss, Eyes: Negative for injury, valentine pain, redness, and discharge, ENT: Negative for injury, pain, and discharge, Neck: Negative for injury, pain, and swelling, Cardiovascular: Negative for chest pain, palpitations, and edema, Respiratory: Negative for shortness of breath, cough, wheezing, and pleuritic chest pain, Abdomen/GI: Negative for abdominal pain, nausea, vomiting, diarrhea, and constipation, Back: Negative for injury and pain, : Negative for injury, bleeding, discharge, and swelling, MS/Extremity: Negative for injury and deformity, Skin: Negative for injury, rash, and discoloration, Psych: Negative for depression, anxiety, suicide ideation, homicidal ideation, and hallucinations, Allergy/Immunology: Negative for hives, rash, and allergies, Endocrine: Negative for neck swelling, polydipsia, polyuria, polyphagia, and marked weight changes, Hematologic/Lymphatic: Negative for swollen nodes, abnormal bleeding, and unusual bruising. 15:31 Neuro: Positive for headache. Exam: 15:31 Constitutional: This is a well developed, well nourished patient who is awake, alert, valentine and in no acute distress. Head/Face: Normocephalic, atraumatic. Eyes: Pupils equal round and reactive to light, extra-ocular motions intact. Lids and lashes normal. Conjunctiva and sclera are non-icteric and not injected. Cornea within normal limits. Periorbital areas with no swelling, redness, or edema. ENT: Nares patent. No nasal discharge, no septal abnormalities noted. Tympanic membranes are normal and external auditory canals are clear. Oropharynx with no redness, swelling, or masses, exudates, or evidence of obstruction, uvula midline. Mucous membranes moist. Neck: Trachea midline, no thyromegaly or masses palpated, and no cervical lymphadenopathy. Supple, full range of motion without nuchal rigidity, or vertebral point tenderness. No Meningismus. Chest/axilla: Normal chest wall appearance and motion. Nontender with no deformity. No lesions are appreciated. Cardiovascular: Regular rate and rhythm with a normal S1 and S2. No gallops, murmurs, or rubs. Normal PMI, no JVD. No pulse deficits. Respiratory: Lungs have equal breath sounds bilaterally, clear to auscultation and percussion. No rales, rhonchi or wheezes noted. No increased work of breathing, no retractions or nasal flaring. Abdomen/GI: Soft, non-tender, with normal bowel sounds. No distension or tympany. No guarding or rebound. No evidence of tenderness throughout. Back: No spinal tenderness. No costovertebral tenderness. Full range of motion. Male : Normal genitalia with no discharge or lesions. Skin: Warm, dry with normal turgor. Normal color with no rashes, no lesions, and no evidence of cellulitis. MS/ Extremity: Pulses equal, no cyanosis. Neurovascular intact. Full, normal range of motion. Neuro: Awake and alert, GCS 15, oriented to person, place, time, and situation. Cranial nerves II-XII grossly intact. Motor strength 5/5 in all extremities. Sensory grossly intact. Cerebellar exam normal. Normal gait. Psych: Awake, alert, with orientation to person, place and time. Behavior, mood, and affect are within normal limits. 15:31 Neck: ROM/movement: is normal, no acute changes, Meningeal signs: are not present, Kernig's sign is negative, Brudzinski's sign is negative. Vital Signs: 14:25 BP 139 / 85; Pulse 76; Resp 16; Temp 98.3; Pulse Ox 97% on R/A; Weight 145.15 kg; iw Height 5 ft. 11 in. (180.34 cm); Pain 8/10; 14:25 Body Mass Index 44.63 (145.15 kg, 180.34 cm) iw MDM: 14:32 Patient medically screened. [facility] 15:31 Data reviewed: vital signs, nurses notes, EMS record, lab test result(s), EKG, [facility] radiologic studies, CT scan, plain films. 12/28 15:29 Order name: Basic Metabolic Panel; Complete Time: 16:24 [facility] 12/28 15:29 Order name: CBC with Diff; Complete Time: 16:24 [facility] 12/28 15:29 Order name: LFT's; Complete Time: 16:24 [facility] 12/28 15:29 Order name: Magnesium; Complete Time: 16:24 [facility] 12/28 15:29 Order name: NT PRO-BNP; Complete Time: 16:24 [facility] 12/28 15:29 Order name: PT-INR; Complete Time: 16:24 [facility] 12/28 15:29 Order name: Troponin (emerg Dept Use Only); Complete Time: 16:24 [facility] 12/28 15:29 Order name: XRAY Chest (1 view) [facility] 12/28 15:29 Order name: CT Head Brain wo Cont [facility] 12/28 15:35 Order name: Influenza Screen (a \T\ B); Complete Time: 16:24 [facility] 12/28 16:21 Order name: CBC Smear Scan; Complete Time: 16:24 [facility] 12/28 16:55 Order name: Urine Dipstick--Ancillary (enter results) 12/28 15:29 Order name: EKG; Complete Time: 15:31 [facility] 12/28 15:29 Order name: Cardiac monitoring; Complete Time: 15:58 [facility] 12/28 15:29 Order name: EKG - Nurse/Tech [facility] 12/28 15:29 Order name: IV Saline Lock; Complete Time: 15:58 [facility] 12/28 15:29 Order name: Labs collected and sent; Complete Time: 15:58 [facility] 12/28 15:29 Order name: O2 Per Protocol; Complete Time: 15:58 [facility] 12/28 15:29 Order name: O2 Sat Monitoring; Complete Time: 15:58 [facility] Administered Medications: 15:57 Drug: NS 0.9% 1000 ml Route: IV; Rate: 1 bolus; Site: right antecubital; ls4 15:57 Drug: Zofran (Ondansetron) 4 mg Route: IVP; Site: right antecubital; ls4 15:57 Drug: TORadol 30 mg Route: IVP; Site: right antecubital; ls4 16:55 Drug: morphine 4 mg Route: IVP; Site: left antecubital; ls4 16:55 Drug: Zofran (Ondansetron) 4 mg Route: IVP; Site: left antecubital; ls4 Disposition: 12/29/19 17:05 Discharged to Home. Impression: Weakness, Headache. - Condition is Stable. - Discharge Instructions: General Headache Without Cause, Weakness, Fatigue, Weakness, [id number], General Headache Without Cause, Zibt-cv-Bork. - Prescriptions for Fioricet with Codeine 50- 325-40-30 mg Oral capsule - take 1 capsule by ORAL route every 4 hours as needed not to exceed 6 capsules per 24hrs; 24 capsule. Zofran 4 mg Oral Tablet - take 1 tablet by ORAL route every 12 hours As needed; 20 tablet. - Medication Reconciliation Form, Thank You Letter, Antibiotic Education, Prescription Opioid Use, Work release form form. - Follow up: Private Physician; When: 2 - 3 days; Reason: Recheck today's complaints, Continuance of care, Re-evaluation by your physician. Follow up: Eladio Henderson MD; When: 2 - 3 days; Reason: Recheck today's complaints, Re-evaluation by your physician. - Problem is new. - Symptoms have improved. Signatures: Dispatcher [employer] EDMS Ed Trent MD MD cha Williams, Irene, RN RN Marquita Howard RN RN ls4 Corrections: (The following items were deleted from the chart) 17:39 17:05 12/29/2019 17:05 Discharged to Home. Impression: Weakness; Headache. Condition is ls4 Stable. Discharge Instructions: General Headache Without Cause, Weakness, Fatigue, Weakness, [id number], General Headache Without Cause, Sefh-[id number]. Prescriptions for Fioricet with Codeine 67-290-68-30 mg Oral capsule - take 1 capsule by ORAL route every 4 hours as needed not to exceed 6 capsules per 24hrs; 24 capsule, Zofran 4 mg Oral Tablet - take 1 tablet by ORAL route every 12 hours As needed; 20 tablet. and Forms are Medication Reconciliation Form, Thank You Letter, Antibiotic Education, Prescription Opioid Use. Follow up: Private Physician; When: 2 - 3 days; Reason: Recheck today's complaints, Continuance of care, Re-evaluation by your physician. Follow up: Eladio Henderson; When: 2 - 3 days; Reason: Recheck today's complaints, Re-evaluation by your physician. Problem is new. Symptoms have improved. valentine
[2019-12-29] MEDS ORDERED: MORPHINE 4 MG/ML SYR ONE (17:10)
[2019-12-29 17:51] VITALS: BP 139/85; TEMP 98.3; O2SAT 97
[2019-12-29 20:55] LABS: Urine Blood TRACE (NEG); Urine Glucose NEGATIVE (NEG); Urine Protein NEGATIVE (NEG); Urine Specific Gravity 1.025 (1.005-1.030)
--- NOTE | 2019-12-30 15:29 | EKG ---
Test Date: 2019-12-29 Test Time: 16:12:28 Gluing Machine Operator Automatic: SINA MEASUREMENT RESULTS: Intervals: Rate: 71 WY: 150 QRSD: 80 QT: 386 QTc: 419 [place]: P: 10 WY: 150 QRS: 60 T: 38 INTERPRETIVE STATEMENTS: Sinus rhythm with occasional premature ventricular complexes Otherwise normal ECG Compared to ECG 05/12/2019 06:40:03 Ventricular premature complex(es) now present Electronically Signed On 12-30-19 15:28:14 CDT by Danyel Giang
== END 2019-12-29 17:39 | disposition home or self-care (01) ==
LOC: ER 14:18
DX: R51 Headache (principal); R53.1 Weakness; I49.3 Ventricular premature depolarization; Z87.891 Personal history of nicotine dependence
CPT/HCPCS: 93005; 85025; 80048; 36415; 83735; 85610; 80076; 81003; 84484; 83880; 87804 ×2; 70450; 71045; 96375; 96374; 99285; J7030; J2405 ×2

== ENCOUNTER 2020-08-28 06:42 | Emergency (ER) | payer OTHER ==
[2020-08-28] MEDS ORDERED: MORPHINE 4 MG/ML SYR ONE ×2 (07:26→08:41)
[2020-08-28] MEDS ORDERED: ONDANSETRON 4 MG/2 ML VIAL ONE (07:26)
[2020-08-28] MEDS ORDERED: FAMOTIDINE 20 MG/2 ML VIAL IV ONE (07:27)
[2020-08-28 08:26] LABS: Absolute Lymphocytes (CBC) 2.7 K/uL (0.7-4.9); Basophils % 0.8 % (0-1.3); Hematocrit 50.5 % (39.6-49.0); Lymphocytes % 40.8 % (15.3-44.8); MPV 8.5 fL (7.6-11.3)
[2020-08-28 08:38] LABS: AST/SGOT 15 U/L (15-37); BUN Blood Urea Nitrogen 9 mg/dL (7-18); Bicarbonate 24 mmol/L (21-32); Glucose Level 122 mg/dL (74-106); Potassium 3.8 mmol/L (3.5-5.1); Sodium Level 140 mmol/L (136-145)
[2020-08-28 08:39] LABS: ALT/SGPT 30 U/L (12-78); Albumin 3.8 g/dL (3.4-5.0); Alkaline Phosphatase 85 U/L (45-117); Bilirubin Direct < 0.1 mg/dL (0-0.2); Bilirubin Total 0.4 mg/dL (0.2-1.0); Lipase 113 U/L (73-393); Protein, Total 8.2 g/dL (6.4-8.2)
--- NOTE | 2020-08-28 09:12 | RAD REPORT ---
EXAM DESCRIPTION: CT - Abdomen Pelvis W Contrast - 08/28/2020 8:57 am CLINICAL HISTORY: ABD PAIN COMPARISON: Abdomen Pelvis W Contrast dated 12/03/2018 TECHNIQUE: Biphasic, helical CT imaging of the abdomen and pelvis was performed following 100 ml non -ionic IV contrast. No oral contrast administered. All CT scans are performed using dose optimization technique as appropriate and may include automated exposure control or mA/KV adjustment according to patient size. FINDINGS: No suspicious findings in the lung bases. The liver, spleen, and pancreas show no suspicious findings. A 2 centimeter gallstone is present. Add itional small gallstone identified. Additional stones could be occult. Acute gallbladder process is n ot seen. No biliary tree dilatation. Symmetric renal function is seen with no hydronephrosis or suspicious renal mass. No pyelonephritis o r acute parenchymal process. No nonobstructing calculi seen. No urinary bladder abnormality. Prostate gland does than normal limits for age. No adrenal abnormalities. No dilated bowel loops or bowel wall thickening. No appendicitis findings. Patient has sigmoid divert iculosis but no definitive diverticulitis. No free air, free fluid or inflammatory stranding. No her tam, mass or bulky lymphadenopathy. Lumbar disc and bone degenerative changes are present. No acute or pathologic bone process seen. IMPRESSION: Contrast enhanced CT abdomen and pelvis showing no acute or emergent finding. Nonacute findings detailed in this report are similar the 2019 study.
--- NOTE | 2020-08-28 09:16 | RAD REPORT ---
EXAM DESCRIPTION: US - Abdomen Exam Limited - 08/28/2020 8:10 am CLINICAL HISTORY: ABD PAIN COMPARISON: Abdomen Pelvis W Contrast dated 12/03/2018 FINDINGS: A 2 centimeter size gallstone is present at the neck of the gallbladder. This has been pre viously identified. Large stone could mask additional small stones. No wall thickening or pericholecy stic fluid. No gallbladder wall focal mass. No common duct stone or biliary tree dilatation identified. IMPRESSION: As previously noted, the patient has a large 2 centimeter gallstone fixed near the neck of the gallbladder.
--- NOTE | 2020-08-28 09:42 | ER ---
Nurse's Notes [facility] Name: Azam Eastman Age: 60 yrs Sex: Male : 1960 Arrival Date: 08/28/2020 Time: 06:43 Bed 5 Private MD: Diagnosis: Cholelithiasis Presentation: 08/28 06:51 Chief complaint: Patient states: Abdominal pain and feels like fainting, states the sg pain is non radiating, denies fever/chills/nausea/vomiting. Coronavirus screen: Client denies travel out of the [place] in the last 14 days. Ebola Screen: Patient negative for fever greater than or equal to 101.5 degrees Fahrenheit, and additional compatible Ebola Virus Disease symptoms Patient denies exposure to infectious person. Patient denies travel to an Ebola-affected area in the 21 days before illness onset. No symptoms or risks identified at this time. Initial Sepsis Screen: Does the patient meet any 2 criteria? No. Patient's initial sepsis screen is negative. Does the patient have a suspected source of infection? Yes: Acute abdominal pain. Risk Assessment: Do you want to hurt yourself or someone else? Patient reports no desire to harm self or others. Onset of symptoms was August 28, 2020. Care prior to arrival: None. 06:51 Acuity: YOLIS 3 sg 06:51 Method Of Arrival: Ambulatory sg Historical: - Allergies: 06:53 No Known Allergies; sg - PMHx: 06:53 Arthritis; Cholelithiasis; kidney infection; Kidney stones; sg - PSHx: 06:53 L knee; sg - Immunization history:: Adult Immunizations up to date. - Social history:: Smoking status: Patient denies any tobacco usage or history of. - Family history:: not pertinent. - Hospitalizations: : No recent hospitalization is reported. Screenin:52 Abuse screen: Denies threats or abuse. Nutritional screening: No deficits noted. rr5 Tuberculosis screening: No symptoms or risk factors identified. Fall Risk None identified. Assessment: 07:15 General: Appears in no apparent distress. uncomfortable, Behavior is cooperative, jl7 agitated, anxious. Pain: Complains of pain in right upper quadrant and right lower quadrant Pain does not radiate. Pain currently is 10 out of 10 on a pain scale. Quality of pain is described as aching, gnawing, Pain began 2 hours ago. Is continuous. Neuro: Level of Consciousness is awake, alert, obeys commands, Oriented to person, place, time, situation. Cardiovascular: Patient's skin is warm and dry. Respiratory: Airway is patent Respiratory effort is even, unlabored, Respiratory pattern is regular, symmetrical. GI: Patient currently denies constipation, diarrhea, nausea, vomiting. : No signs and/or symptoms were reported regarding the genitourinary system. Denies burning with urination, pain. Derm: Skin is pink, warm \T\ dry. 08:23 Reassessment: Pt reports the morphine helped a little but it's still hurting really jl7 bad. ERD notified, see MAR for orders. 09:00 Reassessment: Patient appears in no apparent distress at this time. Patient and/or jl7 family updated on plan of care and expected duration. Pain level reassessed. Patient is alert, oriented x 3, equal unlabored respirations, skin warm/dry/pink. Patient states feeling better. Patient states symptoms have improved. Vital Signs: 06:52 BP 148 / 95; Pulse 80; Resp 18; Temp 98.2; Pulse Ox 100% ; rr5 08:19 BP 170 / 93; Pulse 64; Resp 17; Pulse Ox 98% ; jl7 09:00 BP 151 / 53; Pulse 69; Resp 15; Pulse Ox 100% ; jl7 ED Course: 06:43 Patient arrived in ED. am2 06:52 Patient has correct armband on for positive identification. Placed in gown. Bed in low rr5 position. Call light in reach. Side rails up X 1. Pulse ox on. NIBP on. 06:53 Triage completed. sg 07:01 Richie Reddy MD is Attending Physician. rn 07:07 Mary Jane Peña RN is Primary Nurse. jl7 07:33 Initial lab(s) drawn, by me, sent to lab. Inserted saline lock: 20 gauge in right jl7 antecubital area, using aseptic technique. Blood collected. 07:34 Arm band placed on right wrist. jl7 08:07 US Abdomen Limited In Process Unspecified. EDMS 08:57 CT Abd/Pelvis - IV Contrast Only In Process Unspecified. EDMS 09:40 Nicko Tian MD is Referral Physician. rn 09:57 No provider procedures requiring assistance completed. IV discontinued, intact, jl7 bleeding controlled, No redness/swelling at site. Pressure dressing applied. Administered Medications: 07:18 Drug: Zofran (Ondansetron) 4 mg Route: IVP; Site: right antecubital; jl7 08:23 Follow up: Response: No adverse reaction jl7 07:20 Drug: morphine 4 mg Route: IVP; Site: right antecubital; jl7 07:50 Follow up: Response: No adverse reaction; Pain is decreased jl7 07:22 Drug: Pepcid 20 mg Route: IVP; Site: right antecubital; jl7 08:23 Follow up: Response: No adverse reaction jl7 08:30 Drug: morphine 4 mg Route: IVP; Site: right antecubital; jl7 09:00 Follow up: Response: No adverse reaction; Pain is decreased jl7 09:56 Drug: [place] 10 mg-325 mg 1 tabs Route: PO; jl7 09:56 Follow up: Response: Medication administered at discharge. jl7 Outcome: 09:41 Discharge ordered by . rn 09:57 Discharged to home ambulatory. jl7 09:57 Condition: stable 09:57 Discharge instructions given to patient, Instructed on discharge instructions, follow up and referral plans. medication usage, Demonstrated understanding of instructions, follow-up care, medications, Prescriptions given X 2. 09:57 Patient left the ED. jl7 Signatures: Dispatcher [employer] EDMS Isaac Gustafson RN RN sg Nieto, Roman, MD MD rn Leal, Jahala, RN RN jl7 Mee Atkins Raymond RN RN rr5
--- NOTE | 2020-08-28 09:42 | EDPHYS ---
Physician Documentation [facility] Name: Azam Eastman Age: 60 yrs Sex: Male : 1960 Arrival Date: 08/28/2020 Time: 06:43 Bed 5 Private MD: ED Physician Richie Reddy HPI: 08/28 07:06 This 60 yrs old Male presents to ER via Ambulatory with complaints of rn Abdominal Pain. 07:06 The patient presents with abdominal pain in the epigastric area. Onset: The rn symptoms/episode began/occurred this morning. The symptoms do not radiate. Associated signs and symptoms: Pertinent positives: nausea, Pertinent negatives: blood in stools, chest pain, constipation, diarrhea, dysuria, fever, shortness of breath, vomiting blood. The symptoms are described as achy, crampy. Modifying factors: The symptoms are alleviated by nothing, the symptoms are aggravated by touching the area. Severity of pain: At its worst the pain was moderate in the emergency department the pain is unchanged. The patient has not experienced similar symptoms in the past. The patient has not recently seen a physician. Reports upper abd pain, began 0500 today, no fever, + nausea, no vomiting/diarrhea. Reports had "a couple beers and burritos last night". Denies pain like this before. . Historical: - Allergies: 06:53 No Known Allergies; sg - PMHx: 06:53 Arthritis; Cholelithiasis; kidney infection; Kidney stones; sg - PSHx: 06:53 L knee; sg - Immunization history:: Adult Immunizations up to date. - Social history:: Smoking status: Patient denies any tobacco usage or history of. - Family history:: not pertinent. - Hospitalizations: : No recent hospitalization is reported. ROS: 07:06 Constitutional: Negative for fever, chills, and weight loss, Eyes: Negative for injury, rn pain, redness, and discharge, Cardiovascular: Negative for chest pain, palpitations, and edema, Respiratory: Negative for shortness of breath, cough, wheezing, and pleuritic chest pain, Abdomen/GI: + abd pain and nausea Back: Negative for injury and pain, : Negative for injury, bleeding, discharge, and swelling, MS/Extremity: Negative for injury and deformity, Skin: Negative for injury, rash, and discoloration, Neuro: Negative for headache, weakness, numbness, tingling, and seizure. Exam: 07:06 Constitutional: This is a well developed, well nourished patient who is awake, alert, cvicu rn to room, appears in pain Head/Face: Normocephalic, atraumatic. Eyes: Pupils equal round and reactive to light, extra-ocular motions intact. ENT: dry MM Cardiovascular: Regular rate and rhythm. No pulse deficits. Respiratory: No increased work of breathing, no retractions or nasal flaring. Abdomen/GI: soft, + epigastric and RUQ tenderness, no rebound Skin: Warm, dry MS/ Extremity: Pulses equal, no cyanosis. Neurovascular intact. Full, normal range of motion. Equal circumference. Neuro: Awake and alert, GCS 15 Vital Signs: 06:52 BP 148 / 95; Pulse 80; Resp 18; Temp 98.2; Pulse Ox 100% ; rr5 08:19 BP 170 / 93; Pulse 64; Resp 17; Pulse Ox 98% ; jl7 09:00 BP 151 / 53; Pulse 69; Resp 15; Pulse Ox 100% ; jl7 MDM: 07:01 Patient medically screened. rn 09:39 Differential diagnosis: cholecystitis, Cholelithiasis, gastritis, gastroesophageal rn reflux disease, non-specific abd pain, pancreatitis, Peptic Ulcer Disease. Data reviewed: vital signs, nurses notes, lab test result(s), radiologic studies, CT scan, ultrasound, and as a result, I will discharge patient. Counseling: I had a detailed discussion with the patient and/or guardian regarding: the historical points, exam findings, and any diagnostic results supporting the discharge/admit diagnosis, lab results, radiology results, the need for outpatient follow up, to return to the emergency department if symptoms worsen or persist or if there are any questions or concerns that arise at home. Response to treatment: the patient's symptoms have markedly improved after treatment, and as a result, I will discharge patient. Special discussion: Based on the patient's Hx, exam, and Dx evaluation, there is no indication for emergent surgery or inpatient Tx. It is understood by the patient/guardian that if the Sx's persist or worsen they need to return immediately for re-evaluation. I discussed with the patient/guardian in detail that at this point there is no indication for admission to the hospital. It is understood, however, that if the symptoms persist or worsen the patient needs to return immediately for re-evaluation. Based on the history and exam findings, there is no indication for further emergent testing or inpatient evaluation. I discussed with the patient/guardian the need to see the general surgeon for further evaluation of the symptoms. ED course: Pt improved, sleeping comfortably, no gross changes in gallbladder stone, no signs of infection, will dc home with diet changes and gen surgery f/u. . 08/28 07:05 Order name: Basic Metabolic Panel; Complete Time: 08:39 rn 08/28 07:05 Order name: CBC with Diff; Complete Time: 08:39 rn 08/28 07:05 Order name: Hepatic Function; Complete Time: 08:39 rn 08/28 07:05 Order name: Lipase; Complete Time: 08:39 rn 08/28 07:05 Order name: CT Abd/Pelvis - IV Contrast Only; Complete Time: 09:17 rn 08/28 07:05 Order name: US Abdomen Limited; Complete Time: 09:17 rn 08/28 07:05 Order name: IV Saline Lock; Complete Time: 07:35 rn 08/28 07:05 Order name: Labs collected and sent; Complete Time: 07:35 rn Administered Medications: 07:18 Drug: Zofran (Ondansetron) 4 mg Route: IVP; Site: right antecubital; jl7 08:23 Follow up: Response: No adverse reaction jl7 07:20 Drug: morphine 4 mg Route: IVP; Site: right antecubital; jl7 07:50 Follow up: Response: No adverse reaction; Pain is decreased jl7 07:22 Drug: Pepcid 20 mg Route: IVP; Site: right antecubital; jl7 08:23 Follow up: Response: No adverse reaction jl7 08:30 Drug: morphine 4 mg Route: IVP; Site: right antecubital; jl7 09:00 Follow up: Response: No adverse reaction; Pain is decreased jl7 09:56 Drug: [place] 10 mg-325 mg 1 tabs Route: PO; jl7 09:56 Follow up: Response: Medication administered at discharge. jl7 Disposition: 08/28/20 09:41 Discharged to Home. Impression: Cholelithiasis. - Condition is Stable. - Discharge Instructions: Cholelithiasis. - Prescriptions for Zofran ODT 4 mg Oral tablet,disintegrating - place 1 tablet by TRANSLINGUAL route every 8 hours As needed; 20 tablet. Tylenol- Codeine #3 300-30 mg Oral Tablet - take 1 tablet by ORAL route every 6 hours As needed; 15 tablet. - Medication Reconciliation Form, Thank You Letter, Antibiotic Education, Prescription Opioid Use form. - Follow up: Nicko Tian MD; When: As needed; Reason: Recheck today's complaints, Re-evaluation by your physician. - Problem is an acute exacerbation. - Symptoms have improved. Signatures: Dispatcher [employer] EDMS Isaac Gustafson RN RN sg Richie Reddy MD MD rn Leal, Jahala, RN RN jl7 Corrections: (The following items were deleted from the chart) 09:57 09:41 08/28/2020 09:41 Discharged to Home. Impression: Cholelithiasis. Condition is jl7 Stable. Forms are Medication Reconciliation Form, Thank You Letter, Antibiotic Education, Prescription Opioid Use. Follow up: Nicko Tian; When: As needed; Reason: Recheck today's complaints, Re-evaluation by your physician. Problem is an acute exacerbation. Symptoms have improved. rn
[2020-08-28] MEDS ORDERED: HYDROCODONE/APAP 10/325 TAB ONE (10:02)
[2020-08-28 12:38] VITALS: TEMP 98.2
[2020-08-28 12:42] VITALS: BP 151/53; O2SAT 100
== END 2020-08-28 09:57 | disposition home or self-care (01) ==
LOC: ER 06:42
DX: K80.20 Calculus of gallbladder without cholecystitis without obstruction (principal)
CPT/HCPCS: 85025; 80048; 36415; 80076; 83690; 74177; 76705; 96375; 96374; 99284; Q9967; J2405

== ENCOUNTER 2021-02-28 13:46 | Emergency (ER) | payer OTHER ==
[2021-02-28] MEDS ORDERED: LIDOCAINE VISCOUS 2% SOLN 15 ML UDC ONE (14:31)
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
[2021-02-28] MEDS ORDERED: NA CHLORIDE 0.9% 1,000 ML ONE (18:01)
[2021-02-28] MEDS ORDERED: ONDANSETRON 4 MG/2 ML VIAL ONE (18:01)
[2021-02-28] MEDS ORDERED: BACI/NEOMYCIN/POLY OINT 15GM TOP ONE (18:01)
[2021-02-28] MEDS ORDERED: MORPHINE 4 MG/ML SYR ONE (18:01)
[2021-02-28 18:13] LABS: Absolute Lymphocytes (CBC) 1.9 K/uL (0.7-4.9); Basophils % 0.7 % (0-1.3); Hematocrit 43.3 % (39.6-49.0); Lymphocytes % 26.8 % (15.3-44.8); MPV 8.7 fL (7.6-11.3); RBC Red Blood Cell Count 4.72 M/uL (4.33-5.43)
[2021-02-28] MEDS ORDERED: TETANUS & DIPHTHERIA TOX,ADULT 0.5 ML VIAL ONE (18:43)
[2021-02-28] MEDS ORDERED: HYDROCODONE/APAP 5/325 MG TAB ONE (18:43)
[2021-02-28 19:36] VITALS: TEMP 97.9
[2021-02-28 19:37] VITALS: BP 160/95; O2SAT 100
== END 2021-02-28 19:32 | disposition home or self-care (01) ==
LOC: ER 13:46
DX: T22.212A Burn of second degree of left forearm, initial encounter (principal); T22.232A Burn of second degree of left upper arm, initial encounter; Z23 Encounter for immunization; M19.90 Unspecified osteoarthritis, unspecified site; W40.1XXA Explosion of explosive gases, initial encounter
CPT/HCPCS: 96361; 85025; 80048; 36415; 90471; 90714; 96375; 96374; 99284; J7030; J2405